=== PATIENT | male | born 1935 | race Caucasian/White ===

== ENCOUNTER 2016-08-05 17:55 | Inpatient (IN) | payer MEDICARE, BC, OTHER ==
[~2016-08-05] VITALS: Ht 193 cm; Wt 91.1 kg
[2016-08-05 19:05] VITALS: BP 113/60; PULSE 78; RESP 24; TEMP 97; O2SAT 88; O2SAT 93
--- NOTE | 2016-08-05 19:11 | PD ---
HPI Chief Complaint: Psychiatric Symptoms Time Seen by Provider: 19:07 Travel History International Travel<30 days: No Contact w/Intl Traveler<30days: No Traveled to known affect area: No History of Present Illness HPI 81-year-old male that presents to the ED for evaluation of Mariaelena harper. Patient was Ferrell acted by police after apparently he made statements that he didn't want live anymore. Apparently patient was found at home not eating and not taking care of himself. From report from ambulance and ED nurse patient apparently was found with his who was for possibly 24 hours. Unclear as to the reason of the but apparently patient has been not taking care of himself since and is basically very depressed and during my examination he cries and is hard to get his attention. 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 Patient does not use oxygen at home. Patient is unclear as to why he hasn't eaten other than being depressed and not wanting to live anymore. Patient apparently with . Police was called who Ferrell acted the patient for his own safety. He denies any history of schizophrenia. He does tell me that he takes lots of medications but he doesn't know the name of all done. He does take blood thinners. He denies any abdominal pain. Nausea or vomiting. He does state having some shortness of breath and some chest pressure. Has no allergies to medication. Denies any drugs or alcohol. Denies any homicidal ideation. PFSH Past Medical History Hx Anticoagulant Therapy: Yes Cardiovascular Problems: Yes High Cholesterol: Yes Chest Pain: Yes Past Surgical History Cardiac Surgery: Yes (CABG) Social History Alcohol Use: No Tobacco Use: No Substance Use: No Allergies-Medications (Allergen,Severity, Reaction): Coded Allergies: No Known Allergies (Unverified , 08/05/16) Review of Systems Except as stated in HPI: all other systems reviewed are Neg Physical Exam Narrative GENERAL: SKIN: Warm and dry. HEAD: Atraumatic. Normocephalic. EYES: Pupils equal and round. No scleral icterus. No injection or drainage. ENT: No nasal bleeding or discharge. Mucous membranes pink and moist. Tongue is midline. No uvula deviation. NECK: Trachea midline. No JVD. CARDIOVASCULAR: Regular rate and rhythm. No murmurs, S3, S4. RESPIRATORY: No accessory muscle use. Wheezing heard in all lung swanson. Breath sounds equal bilaterally. GASTROINTESTINAL: Abdomen soft, non-tender, nondistended. Hepatic and splenic margins not palpable. MUSCULOSKELETAL: Extremities without clubbing, cyanosis, or edema. No obvious deformities. Full range of motion of the upper and lower extremities bilaterally. 2+ pulses bilaterally. NEUROLOGICAL: Awake and alert. No obvious cranial nerve deficits. Motor grossly within normal limits. Five out of 5 muscle strength in the arms and legs. Normal speech. PSYCHIATRIC: Very depressed mood and affect; insight and judgment questionable at this time. Data Data Last Documented VS Vital Signs Date Time Temp Pulse Resp B/P Pulse Ox O2 Delivery O2 Flow Rate FiO2 08/05/16 19:38 95 Nasal Cannula 2 08/05/16 19:05 97.0 78 24 113/60 Orders Complete Blood Count With Diff (08/05/16 18:59) Comprehensive Metabolic Panel (08/05/16 18:59) Urinalysis - C+S If Indicated (08/05/16 18:59) Drug Screen, Random Urine (08/05/16 18:59) Alcohol (Ethanol) (08/05/16 18:59) Psych Screen (08/05/16 18:59) Electrocardiogram (08/05/16 19:05) Ckmb (Isoenzyme) Profile (08/05/16 19:05) Troponin I (08/05/16 19:05) Prothrombin Time / Inr (Pt) (08/05/16 19:05) Act Partial Throm Time (Ptt) (08/05/16 19:05) Chest, Single Ap (08/05/16 19:05) Iv Access Insert/Monitor (08/05/16 19:05) Ecg Monitoring (08/05/16 19:05) Oximetry (08/05/16 19:05) Albuterol Neb (Albuterol Neb) (08/05/16 19:15) B-Type Natriuretic Peptide (08/05/16 19:36) CKMB (08/05/16 19:12) CKMB% (08/05/16 19:12) Labs Laboratory Tests Test 08/05/16 19:12 White Blood Count 3.3 TH/MM3 Red Blood Count 4.17 MIL/MM3 Hemoglobin 14.0 GM/DL Hematocrit 39.5 % Mean Corpuscular Volume 94.7 FL Mean Corpuscular Hemoglobin 33.7 PG Mean Corpuscular Hemoglobin 35.6 % Concent Red Cell Distribution Width 13.0 % Platelet Count 150 TH/MM3 Mean Platelet Volume 9.8 FL Neutrophils (%) (Auto) 62.6 % Lymphocytes (%) (Auto) 23.0 % Monocytes (%) (Auto) 12.9 % Eosinophils (%) (Auto) 0.9 % Basophils (%) (Auto) 0.6 % Neutrophils # (Auto) 2.1 TH/MM3 Lymphocytes # (Auto) 0.8 TH/MM3 Monocytes # (Auto) 0.4 TH/MM3 Eosinophils # (Auto) 0.0 TH/MM3 Basophils # (Auto) 0.0 TH/MM3 CBC Comment DIFF FINAL Differential Comment Prothrombin Time 12.0 SEC Prothromb Time International 1.1 RATIO Ratio Activated Partial 36.8 SEC Thromboplast Time Sodium Level 132 MEQ/L Potassium Level 3.4 MEQ/L Chloride Level 93 MEQ/L Carbon Dioxide Level 31.5 MEQ/L Anion Gap 8 MEQ/L Blood Urea Nitrogen 19 MG/DL Creatinine 0.93 MG/DL Estimat Glomerular Filtration 78 ML/MIN Rate Random Glucose 122 MG/DL Calcium Level 8.2 MG/DL Total Bilirubin 0.6 MG/DL Aspartate Amino Transf 53 U/L (AST/SGOT) Alanine Aminotransferase 34 U/L (ALT/SGPT) Alkaline Phosphatase 107 U/L Total Creatine Kinase 351 U/L Creatine Kinase MB 4.9 NG/ML Creatine Kinase MB % 1.4 % Troponin I 0.06 NG/ML Total Protein 7.9 GM/DL Albumin 3.1 GM/DL Ethyl Alcohol Level LESS THAN 3 MG/DL MDM Medical Decision Making Medical Screen Exam Complete: Yes Emergency Medical Condition: Yes Medical Record Reviewed: Yes Interpretation(s) CBC & BMP Diagram 08/05/16 19:12 Last Impressions Chest X-Ray 08/05/16 190 Signed Impressions: Service Date/Time: July 19:05 - CONCLUSION: Bilateral basilar interstitial disease, some 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 John Almaraz MD Troponin elevated at 0.06 CK elevated in the 300s EKG shows sinus rhythm with no sign of acute ischemia or arrhythmia read by me and attending. Differential Diagnosis COPD versus inability take for self versus chest pain versus a typical chest pain versus ACS versus COPD exacerbation versus depression versus suicidal ideation Narrative Course 81-year-old male that presents to the ED for evaluation of Ferrell act. Patient was properly examined and was found to have signs and symptoms which appear to be consistent with COPD exacerbation and depression. Patient just lost his who apparently was found that his house. Patient is not taking care of himself because of the depression secondary to the loss of the . Patient does appear to be short of breath. All. Patient has been taking his medications. Patient states that he is not eating or taking care of himself. He states that he wants to . Because of this labs and imaging will be ordered. Patient was started on oxygen and given breathing treatments here. Chest x-ray and cardiac workup was done as patient complains of some chest pressure about his appears to be more related to COPD exacerbation cannot rule out ACS. Labs and imaging showed what appears to be mild CHF failure with elevated troponin. Case was discussed in my attending who agrees admission. Patient was admitted to Dr. García. Patient was given Lasix and breathing treatments here in the ED. Patient satting better with oxygen. Patient still Ferrell act. Consult to psychiatry was placed. Procedures EKG Prior to Arrival: No Diagnosis Primary Impression: Acute exacerbation of CHF (congestive heart failure) Qualified Code: I50.9 - Acute on chronic congestive heart failure, unspecified congestive heart failure type Additional Impressions: Elevated troponin Shortness of breath Admitting Information Admitting Physician Requests: Observation Luther Kohler Aug 05, 2016 19:11
[2016-08-05] MEDS ORDERED: RESP: ALBUTEROL 2.5 MG/3 ML NEB (SCH) INH ONE (19:15)
[2016-08-05 19:21] VITALS: O2SAT 93
--- NOTE | 2016-08-05 19:29 | RADRPT ---
EXAM DATE/TIME: 08/05/2016 19:05 [facility] COMPARISON: No previous studies available for comparison. INDICATIONS : Short of breath MEDICAL HISTORY : Hypertension. SURGICAL HISTORY : CABG. ENCOUNTER: Initial ACUITY: 1 day PAIN SCORE: 0/10 LOCATION: Bilateral chest FINDINGS: Mild to moderate mid and lower lung predominant bilateral interstitial opacities are present with mil d cardiomegaly. No pleural effusion seen. No pneumothorax. Patient has had previous median sternotomy. 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 John Almaraz MD on August 05, 2016 at 19:27 Board Certified Radiologist. This report was verified electronically.
[2016-08-05 19:31] LABS: AUTOMATED NEUTROPHIL # 2.1 TH/MM3 (1.8-7.7); BASOPHIL % 0.6 % (0.0-2.0); EOSINOPHIL % 0.9 % (0.0-4.0); HEMATOCRIT 39.5 % (39.0-51.0); HEMO FLAGS DIFF FINAL; LYMPHOCYTE # 0.8 TH/MM3 (1.0-4.8); MEAN CELL VOLUME 94.7 FL (80.0-100.0); MEAN CORPUSCULAR HEMOGLOBIN 33.7 PG (27.0-34.0); MEAN CORPUSCULAR HGB CONC 35.6 % (32.0-36.0); MONO % 12.9 % (0.0-8.0); NEUT % 62.6 % (16.0-70.0); PLATELET COUNT 150 TH/MM3 (150-450); RED BLOOD COUNT 4.17 MIL/MM3 (4.50-5.90); WHITE BLOOD COUNT 3.3 TH/MM3 (4.0-11.0)
[2016-08-05 19:38] VITALS: O2SAT 95
[2016-08-05 19:40] LABS: APTT (PATIENT) 36.8 SEC (24.3-30.1); INTERNATIONAL NORMALIZED RATIO 1.1 RATIO
[2016-08-05 19:49] LABS: ANION GAP 8 MEQ/L (5-15)
[2016-08-05 19:53] LABS: ALKALINE PHOSPHATASE 107 U/L (45-117); ALT (GPT) 34 U/L (12-78); AST (GOT) 53 U/L (15-37); BICARBONATE 31.5 MEQ/L (21.0-32.0); BLOOD UREA NITROGEN 19 MG/DL (7-18); CHLORIDE 93 MEQ/L (98-107); GLOMERULAR FILTRATION RATE 78 ML/MIN (>89); POTASSIUM 3.4 MEQ/L (3.5-5.1); SODIUM (NA) 132 MEQ/L (136-145); TOTAL BILIRUBIN ADULT 0.6 MG/DL (0.2-1.0)
[2016-08-05 20:06] LABS: CKMB 4.9 NG/ML (0.5-3.6)
[2016-08-05] MEDS ORDERED: FUROSEMIDE 40 MG/4 ML VIAL IV PUSH ONE (20:30)
[2016-08-05 20:43] VITALS: BP 107/58; PULSE 67; RESP 22; O2SAT 89
[2016-08-05] MEDS ORDERED: methylPREDNISolone SOD SUCC 125 MG/2 ML VIAL IVP ONE (21:00)
[2016-08-05] MEDS: RESP: ALBUTEROL 2.5 MG/3 ML NEB (SCH) INH (21:04)
[2016-08-05] MEDS ORDERED: SODIUM CHLOR 0.9% 1000 ML INJ 1,000 ML IV SCH (21:11)
[2016-08-05] MEDS ORDERED: ACETAMINOPHEN 325 MG TAB PO PRN (21:15)
[2016-08-05] MEDS ORDERED: ONDANSETRON HCL 4 MG/2 ML VIAL IVP PRN (21:15)
[2016-08-05] MEDS ORDERED: SODIUM CHLORIDE 0.9% FLUSH 5 ML FLUSH FLUSH PRN (21:15)
[2016-08-05] MEDS ORDERED: NALOXONE HCL 0.4 MG/ML AMP IV PRN (21:15)
[2016-08-05 21:43] LABS: MEAN CORPUSCULAR HGB CONC 37.4 % (32.0-36.0)
[2016-08-05] MEDS ORDERED: ENALAPRILAT 2.5 MG/2 ML VIAL IV PUSH PRN (21:45)
[2016-08-05] MEDS ORDERED: hydrALAZINE HCL 20 MG/ML VIAL IV PUSH PRN (21:45)
[2016-08-05] MEDS ORDERED: cloNIDine HCL 0.1 MG TAB PO PRN (21:45)
[2016-08-05 22:02] LABS: BLOOD, URINE NEG (NEG); COMMENT (UR) CULT NOT INDICATED; CULTURE IF INDICATED CULT NOT INDICATED; GLUCOSE,URINE NEG (NEG); KETONE, URINE NEG (NEG); NITRITE,URINE NEG (NEG); SQUAMOUS EPITHELIAL CELL URINE <1 /hpf (0-5); URINE COLOR DARK-YELLOW (YELLW/STRAW)
[2016-08-05 22:13] LABS: AMPHETAMINE, URINE NEG (NEG); BARBITURATES, URINE NEG (NEG); COCAINE, URINE NEG (NEG)
[2016-08-05] MEDS: D5-NS + KCL 20 MEQ INJ 1,000 ML IV SCH (22:29)
[2016-08-05] MEDS: LORazepam 0.5 MG TAB PO PRN (22:30)
[2016-08-05] MEDS: ENOXAPARIN SODIUM 40 MG/0.4 ML SYRINGE SQ SCH (22:30)
[2016-08-05] MEDS: PANTOPRAZOLE SODIUM 40 MG VIAL IV PUSH SCH (22:30)
[2016-08-05] MEDS: LEVOFLOXACIN 750 MG PREMIX INJ 150 ML IV SCH (22:31)
[2016-08-05] MEDS: DOCUSATE SODIUM 100 MG CAP PO SCH ×2 (22:31→22:40)
[2016-08-05 22:40] VITALS: BP 112/58; PULSE 67; RESP 20; O2SAT 93
[2016-08-06] VITALS (9 sets, daily range): BP systolic 112–140; BP diastolic 55–64; PULSE 64–78; RESP 16–20; TEMP 97.1–97.8; O2SAT 90–96
[2016-08-06] MEDS: NITROGLYCERIN 2% OINT 1 GM PACKET TOPICAL SCH ×5 (02:08→23:22)
[2016-08-06 05:17] LABS: POTASSIUM 3.7 MEQ/L (3.5-5.1)
[2016-08-06 05:20] LABS: HEMATOCRIT 33.6 % (39.0-51.0); MEAN CELL VOLUME 96.3 FL (80.0-100.0); PLATELET COUNT 122 TH/MM3 (150-450); RED BLOOD COUNT 3.49 MIL/MM3 (4.50-5.90); RED CELL DISTRIBUTION WIDTH 12.7 % (11.6-17.2); WHITE BLOOD COUNT 1.8 TH/MM3 (4.0-11.0)
[2016-08-06 05:27] LABS: HEMO FLAGS AUTO DIFF
[2016-08-06] MEDS: RESP: ALBUTEROL 2.5 MG/IPRATROPIUM 0.5 MG NEB (SCH) NEB ×4 (07:21→19:48)
[2016-08-06 07:32] LABS: NEUTROPHIL # MANUAL DIFF 1.5 TH/MM3 (1.8-7.7); PLATELET ESTIMATE SMEAR LOW (NORMAL); PLATELET MORPHOLOGY NORMAL (NORMAL); POLYS (SEG NEUTROPHILS) 81 % (16-70); SCAN/DIFF FINAL DIFF MANUAL; WBC DIFF SAMPLE 100
--- NOTE | 2016-08-06 08:14 | HHI.HP ---
History of Present Illness Primary Care Physician Noe García MD Admission Diagnosis CHF exacerbation, chest pain r/o ACS Diagnoses: (1) Shortness of breath (2) Elevated troponin (3) Acute exacerbation of CHF (congestive heart failure) History of Present Illness 81 Y CM. ADMIT FOR [facility] ACT AND PNA. PT AND HIS HAVE BEEN AT HOME WITH COLD SYMPTOMS FOR APPROXIMATELY THE PAST FOUR DAYS. PT FOUND HIS IN BED FOR WHAT SEEMED TO BE AN EXTENDED PERIOD OF TIME. PT REPORTED HE DID NOT WANT TO BOTHER HIS WHEN SHE WAS ILL IN BED TO TRY TO LET HER RECOVER AND DID NOT WANT TO TAKE HER TO THE ER. HE CALLED MY OFFICE AT [facility] TO REPORT HER HAVING SUBJECTIVE FEVER YET DID NOT SCHEDULE AND APPT HE WAS GOING TO GO TO THE ER AT [facility] DUE TO HIMSELF HAVING RECTAL BLEEDING. I CHECKED THE ER AT [facility] TO SEE IF HE ARRIVED THERE AT THE TIME AND HE WAS A NO SHOW. I WAS CALLED BY THE OFFICER ON THE SCENE AND SPOKE WITH A CHILD CARE ATTENDANT WHOM WAS CONCERNED FOR HIS WELL BEING AND THAT HE APPEARED TO HAVE CHEST CONGESTION. PT CLIFFORD ACTED TO [facility] HE WAS NOT EATING AND THE CONCERN THAT HE WAS UNABLE TO CARE FOR HIMSELF. I WAS THUS CALLED FOR ADMISSION AND SPOKE WITH THE ER PA. PT FOUND WITH PNA, SEPSIS AND GRIEF REACTION. PT VOICES NO A/V/H, NO SI. NO GUNS IN THE HOME. Sepsis Criteria SIRS Criteria (2 or more): Heart rate over 90, RR > 20 or PaCO2 < 32 Sepsis Criteria (SIRS+source): Infect source susp/known Severe Sepsis (+one): Organ Dysfunction, Hypotension, Acute Oliguria/Renal Failure Multiple Organ Dysfunction Syn: Evidence -2 organs failing Criteria Outcome: Meets severe sepsis criteria Review of Systems ROS Limitations: Clinical Condition, Altered Mental Status, Poor Historian Other NEGATIVE FOURTEEN POINT ROS EXCEPT ABOVE Past Family Social History Allergies: Coded Allergies: No Known Allergies (Unverified , 08/05/16) Past Medical History CAD HTN Past Surgical History CABG Active Ordered Medications Current Medications Medications (Trade) Dose Ordered Sig/Wilberto Route Start Time Stop Time Status Last Admin (NS Flush) 2 ml UNSCH PRN FLUSH 08/05/16 21:15 (NS Flush) 2 ml BID FLUSH 08/06/16 09:00 (Tylenol) 650 mg Q4H PRN PO 08/05/16 21:15 (Zofran Inj) 4 mg Q6H PRN IVP 08/05/16 21:15 (Colace) 100 mg Q12HR PO 08/05/16 21:45 (Ambien) 5 mg HS PRN PO 08/05/16 21:45 (Lovenox Inj) 40 mg Q24H SQ 08/05/16 22:00 08/05/16 22:30 Naloxone HCl 0.4 mg 0.4 mg UNSCH PRN IV 08/05/16 21:15 (D5-NS + KCl 20 Meq Inj) 1,000 ml @ 20 mls/hr Q24H IV 08/05/16 21:45 08/05/16 22:29 (Apresoline Inj) 20 mg Q4H PRN IV PUSH 08/05/16 21:45 (Ativan) 0.5 mg Q8H PRN PO 08/05/16 21:45 08/05/16 22:30 (Catapres) 0.1 mg Q6H PRN PO 08/05/16 21:45 Enalaprilat 2.5 mg 2.5 mg Q6H PRN IV PUSH 08/05/16 21:45 (Levaquin 750 Mg Premix Inj) 150 ml @ 100 mls/hr Q24H IV 08/05/16 22:00 08/05/16 22:31 (Maddock 5-325 Mg) 1 tab Q4H PRN PO 08/05/16 21:45 (Nitroglycerin 2% Oint) 1 inch Q6HR TOPICAL 08/06/16 00:00 08/06/16 06:00 (Protonix Inj) 40 mg Q24H IV PUSH 08/05/16 21:45 08/05/16 22:30 Family History NC Social History NO E/T/D Physical Exam Vital Signs Vital Signs Date Time Temp Pulse Resp B/P Pulse Ox O2 Delivery O2 Flow Rate FiO2 08/06/16 07:21 94 Nasal Cannula 3.00 08/06/16 04:30 97.2 64 18 112/55 95 08/06/16 00:23 Nasal Cannula 2.00 08/06/16 00:23 97.1 64 18 118/60 96 08/05/16 22:40 67 20 112/58 93 Nasal Cannula 4 08/05/16 20:43 67 22 107/58 89 Nasal Cannula 4 08/05/16 20:34 69 24 08/05/16 19:38 95 Nasal Cannula 2 08/05/16 19:21 93 Nasal Cannula 2.00 08/05/16 19:05 93 Nasal Cannula 2 08/05/16 19:05 97.0 78 24 113/60 88 Room Air Physical Exam GENERAL: This is a well-nourished, well-developed patient, in no apparent distress. SKIN: No rashes, ecchymoses or lesions. Cool and dry. HEAD: Atraumatic. Normocephalic. No temporal or scalp tenderness. EYES: Pupils equal round and reactive. Extraocular motions intact. No scleral icterus. No injection or drainage. ENT: Nose without bleeding, purulent drainage or septal hematoma. Throat without erythema, tonsillar hypertrophy or exudate. Uvula midline. Airway patent. NECK: Trachea midline. No JVD or lymphadenopathy. Supple, nontender, no meningeal signs. CARDIOVASCULAR: Regular rate and rhythm without murmurs, gallops, or rubs. RESPIRATORY: B RONCHI TO APICES, L BASE CRACKLES, HARSH COUGH GASTROINTESTINAL: Abdomen soft, non-tender, nondistended. No hepato-splenomegaly , or palpable masses. No guarding. MUSCULOSKELETAL: Extremities without clubbing, cyanosis, or edema. No joint tenderness, effusion, or edema noted. No calf tenderness. Negative Homans sign bilaterally. NEUROLOGICAL: Awake and alert. Cranial nerves II through XII intact. Motor and sensory grossly within normal limits. Five out of 5 muscle strength in all muscle groups. Normal speech. Laboratory Laboratory Tests Test 08/05/16 08/05/16 08/05/16 08/06/16 19:12 19:54 21:42 04:26 White Blood Count 3.3 1.8 Red Blood Count 4.17 3.49 Hemoglobin 14.0 12.6 Hematocrit 39.5 33.6 Mean Corpuscular Volume 94.7 96.3 Mean Corpuscular Hemoglobin 33.7 36.0 Mean Corpuscular Hemoglobin 35.6 37.4 Concent Red Cell Distribution Width 13.0 12.7 Platelet Count 150 122 Mean Platelet Volume 9.8 9.7 Neutrophils (%) (Auto) 62.6 Lymphocytes (%) (Auto) 23.0 Monocytes (%) (Auto) 12.9 Eosinophils (%) (Auto) 0.9 Basophils (%) (Auto) 0.6 Neutrophils # (Auto) 2.1 Lymphocytes # (Auto) 0.8 Monocytes # (Auto) 0.4 Eosinophils # (Auto) 0.0 Basophils # (Auto) 0.0 CBC Comment DIFF FINAL AUTO DIFF Differential Comment FINAL DIFF MANUAL Prothrombin Time 12.0 Prothromb Time International 1.1 Ratio Activated Partial 36.8 Thromboplast Time Sodium Level 132 132 Potassium Level 3.4 3.7 Chloride Level 93 94 Carbon Dioxide Level 31.5 31.0 Anion Gap 8 7 Blood Urea Nitrogen 19 21 Creatinine 0.93 0.89 Estimat Glomerular Filtration 78 82 Rate Random Glucose 122 220 Calcium Level 8.2 7.9 Total Bilirubin 0.6 Aspartate Amino Transf 53 (AST/SGOT) Alanine Aminotransferase 34 (ALT/SGPT) Alkaline Phosphatase 107 Total Creatine Kinase 351 Creatine Kinase MB 4.9 Creatine Kinase MB % 1.4 Troponin I 0.06 Total Protein 7.9 Albumin 3.1 Ethyl Alcohol Level LESS THAN 3 B-Type Natriuretic Peptide 75 Urine Color DARK-YELLOW Urine Turbidity CLEAR Urine pH 6.0 Urine Specific Many 1.017 Urine Protein TRACE Urine Glucose (UA) NEG Urine Ketones NEG Urine Occult Blood NEG Urine Nitrite NEG Urine Bilirubin NEG Urine Urobilinogen LESS THAN 2.0 Urine Leukocyte Esterase NEG Urine RBC 1 Urine WBC 2 Urine Squamous Epithelial <1 Cells Microscopic Urinalysis Comment CULT NOT INDICATED Urine Opiates Screen POS Urine Barbiturates Screen NEG Urine Amphetamines Screen NEG Urine Benzodiazepines Screen NEG Urine Cocaine Screen NEG Urine Cannabinoids Screen NEG Differential Total Cells 100 Counted Neutrophils % (Manual) 81 Lymphocytes % 12 Monocytes % 7 Neutrophils # (Manual) 1.5 Platelet Estimate LOW Platelet Morphology Comment NORMAL Test 08/06/16 06:45 Troponin I 0.04 Result Diagram: 08/06/1642508/06/16425 Assessment and Plan Assessment and Plan GRIEF REACTION AMS SEVERE SEPSIS NSTEMI PNA COPD HYPERGLYCEMIA REMOTE GIB PANCYTOPENIA CAD CABG HTN CHRONIC SINUSITIS NASAL ABSCESSES HYPOTHYROIDISM PLAN: IVF ENZYMES IV STEROIDS IV PROTONIX GUIAC STOOL PSYCHIATRY CONSULT FOR [facility] ACT CARDIOLOGY CONSULT SEE MY ORDERS FOR MED AND LAB CHANGES PLEASE. INPT ADMIT FOR THE ABOVE DX AND PLAN. EXPECT 5 D INPT STAY UNLESS PT NEEDS TO GO TO PSYCH UNIT. PT WOULD AT HOME W/O INPT ADMIT. PT REQ DC HOME. Problem Qualifiers (1) Acute exacerbation of CHF (congestive heart failure): Qualified Code: I50.9 - Acute on chronic congestive heart failure, unspecified congestive heart failure type Noe García MD Aug 06, 2016 08:14
[2016-08-06] MEDS: SODIUM CHLORIDE 0.9% FLUSH 5 ML FLUSH FLUSH SCH ×2 (09:00→20:44)
[2016-08-06] MEDS: SERTRALINE HCL 100 MG TAB PO SCH (09:24)
[2016-08-06] MEDS: methylPREDNISolone SOD SUCC 125 MG/2 ML VIAL IV PUSH SCH ×3 (09:25→20:45)
--- NOTE | 2016-08-06 11:13 | PD.CONS ---
Provisional Diagnosis Admission Date Aug 05, 2016 at 20:31 Jbphh I. Adjustment disorder with depressed mood versus Mourning Jbphh II. Deferred Jbphh III. CHF, hypertension, hyponatremia Jbphh IV. Recent of Jbphh V. 55 History of Present Illness Service Psychiatry Consult Requested By Primary Care Physician Noe García MD HPI The patient is a 81-year-old retired man, , domiciled alone in [place], without any previous psychiatric history, no previous suicidal attempts, no psychotropics, no previous hospitalizations, medical history of COPD, CHF, CABG, who presents to the ED for evaluation of Ferrell act. Patient was Ferrell acted by police after apparently he made statements that he didn't want live anymore. As per previous Er note "Apparently patient was found at home not eating and not taking care of himself. From report from ambulance and ED nurse patient apparently was found with his who was for possibly 24 hours. Unclear as to the reason of the but apparently patient has been not taking care of himself since and is basically very depressed and during my examination he cries and is hard to get his attention". Patient was seen today at bedside in the medical floor, patient was found talking with sitter, he was calm, cooperative, very pleasant, he explains that his about 2 days ago, he has been extremely sad since then "how not to be sad when your 31 year best friend dies". "However, I am in peace because she is in peace ". He says that when he was found by the police he was extremely sad and he might say that he wanted to , but he doesn't remember. Today he explains that he has a low life to live, he has to go to [place] to the positive the ashes of his as he was her last whish. But more than that, he states that he has many books to read and too much poetry to write before he dies. He describes himself as a very spiritual person, with a lot of friends and a very supportive family and is not part of his Philosophy to commit suicide. Patient reports sadness secondary to the of his , but he denies hopelessness, helplessness, anhedonia, poor appetite, generalized pessimism, lack of jose in the future, suicidal or homicidal ideation. He states that his family, especially his 3 kids, most probably are Landing today in [place] in order to help and be with him. Patient is fully oriented 3, no fluctuation of consciousness, no attention deficit, paranoia, delusions, gross cognitive impairment are observed during this evaluation. Patient reports almost daily use of alcohol, 1 cup of wine, he denies history of withdrawal or alcoholism, he denies the use of illicit drugs. Review of Systems Constitutional: DENIES: Diaphoretic episodes, Fatigue, Fever, Weight gain, Weight loss, Chills, Dizziness, Change in appetite, Night Sweats Endocrine: DENIES: Heat/cold intolerance, Polydipsia, Polyuria, Polyphagia Eyes: DENIES: Blurred vision, Diplopia, Eye inflammation, Eye pain, Vision loss , Photosensitivity, Double Vision Ears, nose, mouth, throat: DENIES: Tinnitus, Hearing loss, Vertigo, Nasal discharge, Oral lesions, Throat pain, Hoarseness, Ear Pain, Running Nose, Epistaxis, Sinus Pain, Toothache, Odynophagia Respiratory: DENIES: Apneas, Cough, Snoring, Wheezing, Hemoptysis, Sputum production, Shortness of breath Cardiovascular: DENIES: Chest pain, Palpitations, Syncope, Dyspnea on Exertion , PND, Lower Extremity Edema, Orthopnea, Claudication Gastrointestinal: DENIES: Abdominal pain, Black stools, Bloody stools, Constipation, Diarrhea, Nausea, Vomiting, Difficulty Swallowing, Anorexia Genitourinary: DENIES: Sexual dysfunction, Urinary frequency, Urinary incontinence, Urgency, Hematuria, Dysuria, Nocturia, Penile Discharge, Testicular Pain, Testicular Swelling Musculoskeletal: DENIES: Joint pain, Muscle aches, Stiffness, Joint Swelling, Back pain, Neck pain Integumentary: DENIES: Abnormal pigmentation, Nail changes, Pruritus, Rash Hematologic/lymphatic: COMPLAINS OF: Bruising (some bruises observed in his arms), DENIES: Lymphadenopathy Immunologic/allergic: DENIES: Eczema, Urticaria Neurologic: DENIES: Abnormal gait, Headache, Localized weakness, Paresthesias, Seizures, Speech Problems, Tremor, Poor Balance Psychiatric: COMPLAINS OF: Depression, DENIES: Anxiety, Confusion, Mood changes, Hallucinations, Agitation, Suicidal Ideation, Homicidal Ideation, Delusions Past Family Social History Coded Allergies: No Known Allergies (Unverified , 08/05/16) Current Medications Medications (Trade) Dose Ordered Sig/Wilberto Route Start Time Stop Time Status Last Admin (NS Flush) 2 ml UNSCH PRN FLUSH 08/05/16 21:15 (NS Flush) 2 ml BID FLUSH 08/06/16 09:00 08/06/16 09:00 (Tylenol) 650 mg Q4H PRN PO 08/05/16 21:15 (Zofran Inj) 4 mg Q6H PRN IVP 08/05/16 21:15 (Colace) 100 mg Q12HR PO 08/05/16 21:45 (Ambien) 5 mg HS PRN PO 08/05/16 21:45 (Lovenox Inj) 40 mg Q24H SQ 08/05/16 22:00 08/05/16 22:30 Naloxone HCl 0.4 mg 0.4 mg UNSCH PRN IV 08/05/16 21:15 (D5-NS + KCl 20 Meq Inj) 1,000 ml @ 20 mls/hr Q24H IV 08/05/16 21:45 08/05/16 22:29 (Apresoline Inj) 20 mg Q4H PRN IV PUSH 08/05/16 21:45 (Ativan) 0.5 mg Q8H PRN PO 08/05/16 21:45 08/05/16 22:30 (Catapres) 0.1 mg Q6H PRN PO 08/05/16 21:45 Enalaprilat 2.5 mg 2.5 mg Q6H PRN IV PUSH 08/05/16 21:45 (Levaquin 750 Mg Premix Inj) 150 ml @ 100 mls/hr Q24H IV 08/05/16 22:00 08/05/16 22:31 (Lyman 5-325 Mg) 1 tab Q4H PRN PO 08/05/16 21:45 (Nitroglycerin 2% Oint) 1 inch Q6HR TOPICAL 08/06/16 00:00 08/06/16 06:00 (Protonix Inj) 40 mg Q24H IV PUSH 08/05/16 21:45 08/05/16 22:30 (SoluMEDROL INJ) 80 mg Q6H IV PUSH 08/06/16 09:00 08/06/16 09:25 (Synthroid) 50 mcg DAILY@0600 PO 08/07/16 06:00 (Zoloft) 100 mg DAILY PO 08/06/16 10:00 08/06/16 09:24 Family History He denies Social History Patient was born and raised in [place], he has been living in [place] for 13 years, he has 3 adult kids, he has been 2 times, his yesterday , he lives in [place], his highest level of education is college, he enjoyed reading books and writing poetry. Physical Exam Vital Signs Vital Signs Date Time Temp Pulse Resp B/P Pulse Ox O2 Delivery O2 Flow Rate FiO2 08/06/16 07:21 94 Nasal Cannula 3.00 08/06/16 04:30 97.2 64 18 112/55 Mental Status Examination Appearance Elderly man, age appearing, good hygiene, hospital [facility], calm, cooperative, and pleasant Speech: Unremarkable Orientation: x3 Memory: Unremarkable Thought Process: Logical Hallucination Type: None Attention and Concentration: Good Suicidal Ideation: No Previous Suicide Attempts: No Homicidal Ideation: No Previous Homicide Attempts: No Judgement: WNL Affect: Euthymic Mood: Sad Motor Activity: Normal gait Assessment & Plan Problem List: (1) Mourning Assessment & Plan: On psychiatric evaluation today patient reports sadness related with recent of his , but denies depressive symptoms such as anhedonia, hopelessness, helplessness, worthlessness, low self-esteem, low energy, poor appetite, insomnia, he denies suicidal and homicidal ideation. Patient denies past and current marco, anxiety, psychotic symptoms. Patient denies visual and auditory hallucinations. Patient is fully oriented 3, no delirium, confusion, gross cognitive impairment observed at this moment. This patient does not have any previous psychiatric history, no previous hospitalization, no previous suicidal attempt. He is highly possible that describes sadness and suicidal statements made to the police and for which the patient was Ferrell acted was secondary to the stress and adjustment produced by the of his . Now, based on this evaluation patient seems to be coping for a well with this sad event in his life, and he seems to have good family support and good coping skills to deal with conflictive and negative emotions. No psychiatric intervention is needed, he does not meet criteria for psychiatric admission. Extensive support and motivation was provided to the patient. No psychotropics are indicated as at this moment. Continue medical care as needed. Ferrell act will be lifted. Consult appreciated. ICD Code: F43.20 Assessment & Plan Estimated LOS: days Jamie Atkinson MD Aug 06, 2016 11:13
--- NOTE | 2016-08-06 13:26 | MB ---
cc: SIXTO HEAD DO DATE OF CONSULTATION 08/06/2016 REASON FOR CONSULTATION Elevated troponin HISTORY OF PRESENT ILLNESS Jose Roth is a pleasant 81-year-old male who was originally a Ferrell acted brought to the emergency room at [facility] on August 05, 2016 due to inability to take care of himself. He and his have had cold symptoms for the past four days. The patient found his in the bed. When police officers and paramedics arrived, the patient stated that no longer wanted to live and he had not been taking care of himself recently and so he was brought in as a Ferrell Act. On arrival here, he was found to possibly have pneumonia versus congestive heart failure. In speaking to him, he states that he had been recently short of breath. He does state that he has some chest pain occasionally but this has been going on for 16 years. The pain comes on briefly across his chest and goes away. Since the start of having episodes of pain, he has had three stress tests. The original two were negative for ischemia. The third one showed an abnormality per the patient and he was taken to the [facility]. In the [facility], he was found to have disease but they were unable to intervene on it and he was deemed medical management. He has noticed that he has had a significant cough over the past few days as well as his did. During the cough is when he seems to get his chest pain. PAST MEDICAL HISTORY 1. Coronary artery disease 2. Hypertension PAST SURGICAL HISTORY Coronary artery bypass grafting (unknown number of breath, unknown date, unknown anatomy ALLERGIES NO KNOWN DRUG ALLERGIES. MEDICATIONS The patient is unsure of his previous medications, notes that he is on a blood thinner of some kind and a blood pressure medication. FAMILY HISTORY Denies premature coronary artery disease or sudden cardiac within the family. SOCIAL HISTORY Denies alcohol, tobacco or drug abuse. REVIEW OF SYSTEMS A 14 systems were reviewed including osteopathic pertinent positives and negatives above, otherwise negative. PHYSICAL EXAMINATION VITAL SIGNS: Temperature 97.2, heart rate 64, blood pressure 112/55, respirations 80, pulse ox 94% on three liters. GENERAL: The patient appears in no acute distress, alert, awake and oriented. HEAD, EYES, EARS, NOSE, AND THROAT: Extraocular muscles intact. Mucous membranes moist. NECK: Supple. No JVD at 45 degrees. No carotid bruits heard bilaterally. Carotid upstroke is brisk in nature. HEART: Regular rate and rhythm. Positive first and second heart sounds with no noted murmurs, gallops or rubs. LUNGS: The lungs have decreased breath sounds at bilateral bases with rhonchi scattered throughout and wheezing noted. ABDOMEN: The abdomen is soft, nontender and nondistended. No organomegaly noted. EXTREMITIES: Show no clubbing, cyanosis or edema. Femoral and distal pulses intact bilaterally. NEUROLOGIC: No focal deficits. SKIN: Warm, dry and intact. OSTEOPATHICALLY: No kyphoscoliosis, lordosis or paraspinal tender points. PSYCHOLOGICALLY: The patient appears in an appropriate grieving state, does not appear to have homicidal or suicidal ideation. LABORATORY WORK White blood cells 1.8, hemoglobin 12.6, hematocrit 33.6, platelets 122. Sodium 132, potassium 3.7, BUN 21, creatinine 0.89, troponin 0.06 decreasing to 0.04. BNP 75. Electrocardiogram (August 05, 2016 at 1824) normal sinus rhythm at 65 beats per minute, nonspecific ST-T wave changes. Possible old inferior infarct. IMPRESSION 1. Shortness of breath. 2. Presumed acute exacerbation of CHF, although it appears that the patient more likely has either a COPD exacerbation versus bronchitis versus pneumonia. 3. Previous inability to take care oF himself due to major grieving since recently losing his . 4. Pancytopenia with extensive neutropenia 5. Mildly elevated troponin most likely type 2 NSTEMI 6. Hyponatremia of unknown cause. 7. History of coronary artery disease with a history of coronary artery bypass grafting, previous abnormal stress test for which he underwent cardiac catheterization and was deemed of medical management. RECOMMENDATIONS 1. Mr. Roth' elevated troponin is most likely secondary to his underlying illness which appears to be either COPD exacerbation, pneumonia or bronchitis. 2. My concern is that he has extensive neutropenia. 3. We will continue medical management for his previous coronary artery disease and minimally elevated troponin. 4. We will check a 2-D echo to look at his overall left ventricular function, cardiac structure and valvopathies. 5. Further recommendations will be made based on the hospital course. Thank you for allowing me to see Jose Roth. If there are any questions, please do not hesitate to call. Sixto GONGORA/DJL /12:30 PM /1:08 PM
[2016-08-06] MEDS: LORazepam 0.5 MG TAB PO PRN (15:25)
[2016-08-06] MEDS: ATORVASTATIN 40 MG TAB PO SCH (20:45)
[2016-08-06] MEDS: D5-NS + KCL 20 MEQ INJ 1,000 ML IV SCH (20:46)
[2016-08-06] MEDS: PANTOPRAZOLE SODIUM 40 MG VIAL IV PUSH SCH (20:52)
[2016-08-06] MEDS: DOCUSATE SODIUM 100 MG CAP PO SCH (20:52)
[2016-08-06] MEDS: ZOLPIDEM TARTRATE 5 MG TAB PO PRN (20:52)
[2016-08-06] MEDS: ENOXAPARIN SODIUM 40 MG/0.4 ML SYRINGE SQ SCH (20:57)
[2016-08-06] MEDS: LEVOFLOXACIN 750 MG PREMIX INJ 150 ML IV SCH (20:58)
--- NOTE | 2016-08-06 22:49 | EKG ---
Date Performed: 08/05/2016 Time Performed: 18:24:57 PTAGE: 81 years EKG: Sinus rhythm NONSPECIFIC T-WAVE ABNORMALITY BORDERLINE ECG NO PREVIOUS TRACING DOCTOR: Aspen Kulkarni Interpretating Date/Time 08/06/2016 22:45:34
[2016-08-07] VITALS (9 sets, daily range): BP systolic 108–147; BP diastolic 58–70; PULSE 73–84; RESP 12–20; TEMP 97.3–98.6; O2SAT 90–94
[2016-08-07] MEDS: methylPREDNISolone SOD SUCC 125 MG/2 ML VIAL IV PUSH SCH (05:20)
[2016-08-07] MEDS: NITROGLYCERIN 2% OINT 1 GM PACKET TOPICAL SCH (05:20)
[2016-08-07] MEDS: LEVOTHYROXINE SODIUM 50 MCG TAB PO SCH (05:21)
[2016-08-07 07:47] LABS: BICARBONATE 28.1 MEQ/L (21.0-32.0); POTASSIUM 3.6 MEQ/L (3.5-5.1)
[2016-08-07 08:24] LABS: AUTOMATED NEUTROPHIL # 11.1 TH/MM3 (1.8-7.7); BASOPHIL # 0.1 TH/MM3 (0-0.2); BASOPHIL % 0.6 % (0.0-2.0); HEMATOCRIT 35.4 % (39.0-51.0); LYMPH % 6.1 % (9.0-44.0); LYMPHOCYTE # 0.8 TH/MM3 (1.0-4.8); MEAN CELL VOLUME 88.8 FL (80.0-100.0); MEAN CORPUSCULAR HEMOGLOBIN 30.1 PG (27.0-34.0); MEAN CORPUSCULAR HGB CONC 33.9 % (32.0-36.0); MONO % 6.8 % (0.0-8.0); NEUT % 86.5 % (16.0-70.0); PLATELET COUNT 157 TH/MM3 (150-450); RED BLOOD COUNT 3.98 MIL/MM3 (4.50-5.90); WHITE BLOOD COUNT 12.8 TH/MM3 (4.0-11.0)
[2016-08-07 08:25] LABS: HEMO FLAGS AUTO DIFF
--- NOTE | 2016-08-07 08:48 | HHI.FPPN ---
Subjective Remarks c/o weakness C/O COUGH C/O SOB D/W RN Objective Vitals Vital Signs Date Time Temp Pulse Resp B/P Pulse Ox O2 Delivery O2 Flow Rate FiO2 08/07/16 04:00 97.4 81 17 147/70 94 08/07/16 00:00 97.4 84 16 145/70 93 08/06/16 20:00 97.6 75 16 140/64 94 08/06/16 20:00 75 08/06/16 19:48 94 Nasal Cannula 3.00 08/06/16 19:45 Nasal Cannula 1.00 08/06/16 16:00 97.8 78 20 134/62 90 08/06/16 12:00 97.2 72 20 132/63 92 08/06/16 12:00 97.2 72 20 132/63 92 08/06/16 09:00 68 I/O 08/06/16 08/06/16 08/06/16 08/07/16 08/07/16 08/07/16 07:00 15:00 23:00 07:00 15:00 23:00 Intake Total 240 ml 450 ml 600 ml 240 ml Output Total 360 ml 250 ml 450 ml Balance -120 ml 200 ml 600 ml -210 ml Intake Oral 240 ml 450 ml 600 ml 240 ml Output Urine Total 360 ml 250 ml 450 ml # Voids 3 # Bowel Movements 0 1 Result Diagram: 08/07/1651408/07/1615 Objective Remarks GENERAL: SKIN: Warm and dry. HEAD: Atraumatic. Normocephalic. EYES: Pupils equal and round. No scleral icterus. No injection or drainage. ENT: No nasal bleeding or discharge. Mucous membranes pink and moist. NECK: Trachea midline. No JVD. CARDIOVASCULAR: Regular rate and rhythm. RESPIRATORY: R/R B. Breath sounds equal bilaterally. GASTROINTESTINAL: Abdomen soft, non-tender, nondistended. Hepatic and splenic margins not palpable. MUSCULOSKELETAL: Extremities without clubbing, cyanosis, or edema. No obvious deformities. NEUROLOGICAL: Awake and alert. No obvious cranial nerve deficits. Motor grossly within normal limits. Five out of 5 muscle strength in the arms and legs. Normal speech. PSYCHIATRIC: Appropriate mood and affect; insight and judgment normal. Medications and IVs Current Medications Medications (Trade) Dose Ordered Sig/Wilberto Route Start Time Stop Time Status Last Admin (NS Flush) 2 ml UNSCH PRN FLUSH 08/05/16 21:15 (NS Flush) 2 ml BID FLUSH 08/06/16 09:00 08/06/16 20:44 (Tylenol) 650 mg Q4H PRN PO 08/05/16 21:15 (Zofran Inj) 4 mg Q6H PRN IVP 08/05/16 21:15 (Colace) 100 mg Q12HR PO 08/05/16 21:45 (Ambien) 5 mg HS PRN PO 08/05/16 21:45 08/06/16 20:52 (Lovenox Inj) 40 mg Q24H SQ 08/05/16 22:00 08/06/16 20:57 Naloxone HCl 0.4 mg 0.4 mg UNSCH PRN IV 08/05/16 21:15 (D5-NS + KCl 20 Meq Inj) 1,000 ml @ 20 mls/hr Q24H IV 08/05/16 21:45 08/06/16 20:46 (Apresoline Inj) 20 mg Q4H PRN IV PUSH 08/05/16 21:45 (Ativan) 0.5 mg Q8H PRN PO 08/05/16 21:45 08/06/16 15:25 (Catapres) 0.1 mg Q6H PRN PO 08/05/16 21:45 Enalaprilat 2.5 mg 2.5 mg Q6H PRN IV PUSH 08/05/16 21:45 (Levaquin 750 Mg Premix Inj) 150 ml @ 100 mls/hr Q24H IV 08/05/16 22:00 08/06/16 20:58 ([place] 5-325 Mg) 1 tab Q4H PRN PO 08/05/16 21:45 (Nitroglycerin 2% Oint) 1 inch Q6HR TOPICAL 08/06/16 00:00 08/07/16 05:20 (Protonix Inj) 40 mg Q24H IV PUSH 08/05/16 21:45 08/06/16 20:52 (SoluMEDROL INJ) 80 mg Q6H IV PUSH 08/06/16 09:00 08/07/16 05:20 (Synthroid) 50 mcg DAILY@0600 PO 08/07/16 06:00 08/07/16 05:21 (Zoloft) 100 mg DAILY PO 08/06/16 10:00 08/06/16 09:24 (Lipitor) 40 mg HS PO 08/06/16 21:00 08/06/16 20:45 (Aspirin Chew) 81 mg DAILY CHEW 08/07/16 09:00 A/P Assessment and Plan GRIEF REACTION AMS SEVERE SEPSIS NSTEMI. TROP NEG NOW. PNA COPD HYPERGLYCEMIA REMOTE GIB PANCYTOPENIA CAD CABG HTN CHRONIC SINUSITIS NASAL ABSCESSES HYPOTHYROIDISM HYPOGONADISM, ON TESTOST PATCH. UNDERSTANDS R/B CA AND INCR CAD. PLAN: IVF IV STEROIDS IV PROTONIX GUIAC STOOL PSYCHIATRY CONSULT FOR HORTON ACT CARDIOLOGY CONSULT TESTOSTERONE PATCH SEE MY ORDERS FOR MED AND LAB CHANGES PLEASE. Noe García MD Aug 07, 2016 08:48
[2016-08-07] MEDS: RESP: ALBUTEROL 2.5 MG/IPRATROPIUM 0.5 MG NEB (SCH) NEB ×4 (08:50→19:41)
[2016-08-07] MEDS: ASPIRIN 81 MG CHEW TAB CHEW SCH (09:00)
[2016-08-07] MEDS: DOCUSATE SODIUM 100 MG CAP PO SCH ×2 (09:00→20:38)
[2016-08-07] MEDS: SERTRALINE HCL 100 MG TAB PO SCH (09:00)
[2016-08-07 10:08] LABS: SCAN/DIFF AUTO DIFF CONFIRMED
[2016-08-07] MEDS: SODIUM CHLORIDE 0.9% FLUSH 5 ML FLUSH FLUSH SCH ×2 (12:58→20:42)
--- NOTE | 2016-08-07 13:15 | PD.CARD.PN ---
Subjective Subjective Remarks No chest pain, breathing better today Objective Medications Current Medications Medications (Trade) Dose Ordered Sig/Wilberto Route Start Time Stop Time Status Last Admin (NS Flush) 2 ml UNSCH PRN FLUSH 08/05/16 21:15 (NS Flush) 2 ml BID FLUSH 08/06/16 09:00 08/07/16 12:58 (Tylenol) 650 mg Q4H PRN PO 08/05/16 21:15 (Zofran Inj) 4 mg Q6H PRN IVP 08/05/16 21:15 (Colace) 100 mg Q12HR PO 08/05/16 21:45 08/07/16 09:00 (Ambien) 5 mg HS PRN PO 08/05/16 21:45 08/06/16 20:52 (Lovenox Inj) 40 mg Q24H SQ 08/05/16 22:00 08/06/16 20:57 Naloxone HCl 0.4 mg 0.4 mg UNSCH PRN IV 08/05/16 21:15 (D5-NS + KCl 20 Meq Inj) 1,000 ml @ 20 mls/hr Q24H IV 08/05/16 21:45 08/06/16 20:46 (Apresoline Inj) 20 mg Q4H PRN IV PUSH 08/05/16 21:45 (Ativan) 0.5 mg Q8H PRN PO 08/05/16 21:45 08/06/16 15:25 (Catapres) 0.1 mg Q6H PRN PO 08/05/16 21:45 Enalaprilat 2.5 mg 2.5 mg Q6H PRN IV PUSH 08/05/16 21:45 (Levaquin 750 Mg Premix Inj) 150 ml @ 100 mls/hr Q24H IV 08/05/16 22:00 08/06/16 20:58 (Hancock 5-325 Mg) 1 tab Q4H PRN PO 08/05/16 21:45 (Protonix Inj) 40 mg Q24H IV PUSH 08/05/16 21:45 08/06/16 20:52 (Synthroid) 50 mcg DAILY@0600 PO 08/07/16 06:00 08/07/16 05:21 (Zoloft) 100 mg DAILY PO 08/06/16 10:00 08/07/16 09:00 (Lipitor) 40 mg HS PO 08/06/16 21:00 08/06/16 20:45 (Aspirin Chew) 81 mg DAILY CHEW 08/07/16 09:00 08/07/16 09:00 (SoluMEDROL INJ) 40 mg Q6H IV 08/07/16 15:00 Vital Signs / I&O Vital Signs Date Time Temp Pulse Resp B/P Pulse Ox O2 Delivery O2 Flow Rate FiO2 08/07/16 12:00 97.8 74 20 108/58 91 08/07/16 08:53 91 Nasal Cannula 5.00 08/07/16 08:00 97.3 73 12 125/60 90 08/07/16 04:00 97.4 81 17 147/70 94 08/07/16 00:00 97.4 84 16 145/70 93 08/06/16 20:00 97.6 75 16 140/64 94 08/06/16 20:00 75 08/06/16 19:48 94 Nasal Cannula 3.00 08/06/16 19:45 Nasal Cannula 1.00 08/06/16 16:00 97.8 78 20 134/62 90 I/O 08/06/16 08/06/16 08/06/16 08/07/16 08/07/16 08/07/16 07:00 15:00 23:00 07:00 15:00 23:00 Intake Total 240 ml 450 ml 600 ml 240 ml Output Total 360 ml 250 ml 450 ml Balance -120 ml 200 ml 600 ml -210 ml Intake Oral 240 ml 450 ml 600 ml 240 ml Output Urine Total 360 ml 250 ml 450 ml # Voids 3 # Bowel Movements 0 1 Physical Exam GENERAL: NAD, AAOx3 SKIN: Warm and dry. HEAD: Atraumatic. Normocephalic. EYES: Pupils equal and round. No scleral icterus. No injection or drainage. ENT: No nasal bleeding or discharge. Mucous membranes pink and moist. NECK: Trachea midline. No JVD. CARDIOVASCULAR: Regular rate and rhythm. RESPIRATORY: No accessory muscle use. Mild rhonchi bilaterally GASTROINTESTINAL: Abdomen soft, non-tender, nondistended. Hepatic and splenic margins not palpable. MUSCULOSKELETAL: Extremities without clubbing, cyanosis, or edema. No obvious deformities. NEUROLOGICAL: Awake and alert. No obvious cranial nerve deficits. Motor grossly within normal limits. Five out of 5 muscle strength in the arms and legs. Normal speech. PSYCHIATRIC: Appropriate mood and affect; insight and judgment normal. Laboratory Laboratory Tests Test 08/07/16 05:15 White Blood Count 12.8 TH/MM3 Red Blood Count 3.98 MIL/MM3 Hemoglobin 12.0 GM/DL Hematocrit 35.4 % Mean Corpuscular Volume 88.8 FL Mean Corpuscular Hemoglobin 30.1 PG Mean Corpuscular Hemoglobin 33.9 % Concent Red Cell Distribution Width 13.0 % Platelet Count 157 TH/MM3 Mean Platelet Volume 10.2 FL Neutrophils (%) (Auto) 86.5 % Lymphocytes (%) (Auto) 6.1 % Monocytes (%) (Auto) 6.8 % Eosinophils (%) (Auto) 0.0 % Basophils (%) (Auto) 0.6 % Neutrophils # (Auto) 11.1 TH/MM3 Lymphocytes # (Auto) 0.8 TH/MM3 Monocytes # (Auto) 0.9 TH/MM3 Eosinophils # (Auto) 0.0 TH/MM3 Basophils # (Auto) 0.1 TH/MM3 CBC Comment AUTO DIFF Differential Comment AUTO DIFF CONFIRMED Sodium Level 134 MEQ/L Potassium Level 3.6 MEQ/L Chloride Level 97 MEQ/L Carbon Dioxide Level 28.1 MEQ/L Anion Gap 9 MEQ/L Blood Urea Nitrogen 33 MG/DL Creatinine 0.96 MG/DL Estimat Glomerular Filtration 75 ML/MIN Rate Random Glucose 159 MG/DL Calcium Level 8.0 MG/DL Assessment and Plan Problem List: (1) PNA (pneumonia) (2) Mourning (3) Acute exacerbation of CHF (congestive heart failure) (4) Elevated troponin (5) Shortness of breath Assessment and Plan 1) Minimal troponin spill, most likely secondary to acute illness 2) Previous cardiac catheterization he was told that they could not do anything , and to continue medical management 3) I offered repeat ischemic evaluation, but would hold off until through acute illness... most likely continue medical management, but will reassess after through acute illness 4) 2D echo pending Problem Qualifiers (1) Acute exacerbation of CHF (congestive heart failure): Qualified Code: I50.9 - Acute on chronic congestive heart failure, unspecified congestive heart failure type Sixto Pelletier DO Aug 07, 2016 13:15
--- NOTE | 2016-08-07 14:43 | EC ---
Study Study Date:08/06/2016 STUDY CONCLUSIONS SUMMARY LEFT VENTRICLE: The cavity size was normal. Wall thickness was increased in a pattern of mild LVH. Systolic function was normal. The estimated ejection fraction was in the range of 55% to 60%. Although no diagnostic regional wall motion abnormality was identified, this possibility cannot be completely excluded on the basis of this study. If LV function is below 40, please consider prescribing an ACEI or ARB or document rationale for non-use. PROCEDURE DATA STUDY STATUS: Elective. Procedure: Transthoracic echocardiography. Image quality was fair. Scanning was performed from the parasternal, apical, and subcostal acoustic windows. Study completion: The patient tolerated the procedure well. Transthoracic echocardiography. M-mode, complete 2D, complete spectral Doppler, and color Doppler. Patient status: Inpatient. CARDIAC ANATOMY LEFT VENTRICLE: The cavity size was normal. Wall thickness was increased in a pattern of mild LVH. Systolic function was normal. The estimated ejection fraction was in the range of 55% to 60%. Although no diagnostic regional wall motion abnormality was identified, this possibility cannot be completely excluded on the basis of this study. AORTIC VALVE: The valve appears to be grossly normal. Doppler: There was no stenosis. No significant regurgitation. MITRAL VALVE: The valve appears to be grossly normal. Doppler: There was no evidence for stenosis. Trace regurgitation. PULMONIC VALVE: Not visualized. TRICUSPID VALVE: The valve appears to be grossly normal. Doppler: There was no evidence for stenosis. Trace regurgitation. PERICARDIUM: There was no pericardial effusion. BASIC MEASUREMENTS ADULT NORMAL Left ventricle LV internal dimension, ED, chordal level, 51.9 mm 43-52 PLAX LV internal dimension, ES, chordal level, *40 mm 23-38 PLAX Fractional shortening, chordal level, PLAX *23 % >29 LV posterior wall thickness, ED 13.2 mm IVS/LVPW ratio, ED 0.98 <1.3 Ventricular septum Septal thickness, ED 13 mm Aortic valve Leaflet separation 20 mm 15-26 Right ventricle RV internal dimension, ED, PLAX 23.3 mm 19-38 BASIC MEASUREMENTS ADULT NORMAL Aortic valve Leaflet separation 20 mm 15-26 Aorta Root diameter, ED *43 mm 20-37 Left atrium Anterior-posterior dimension, ES *44 mm 19-40 LA/aortic root ratio 1.02 LEGEND: Mean values are shown as u=mean value. Asterisk (*) kim values outside specified normal range. Prepared and signed by Sixto Pelletier [id number]
[2016-08-07] MEDS: methylPREDNISolone SOD SUCC 40 MG/1 ML VIAL IV SCH ×2 (16:02→20:38)
[2016-08-07] MEDS: ATORVASTATIN 40 MG TAB PO SCH (20:38)
[2016-08-07] MEDS: ZOLPIDEM TARTRATE 5 MG TAB PO PRN (20:39)
[2016-08-07] MEDS: LEVOFLOXACIN 750 MG PREMIX INJ 150 ML IV SCH (20:40)
[2016-08-07] MEDS: PANTOPRAZOLE SODIUM 40 MG VIAL IV PUSH SCH (20:40)
[2016-08-07] MEDS: ENOXAPARIN SODIUM 40 MG/0.4 ML SYRINGE SQ SCH (20:40)
[2016-08-07] MEDS: D5-NS + KCL 20 MEQ INJ 1,000 ML IV SCH (20:41)
[2016-08-08] VITALS (9 sets, daily range): BP systolic 105–114; BP diastolic 56–67; PULSE 69–90; RESP 16–20; TEMP 97.2–98; O2SAT 89–94
[2016-08-08] MEDS: methylPREDNISolone SOD SUCC 40 MG/1 ML VIAL IV SCH ×4 (03:20→21:01)
[2016-08-08] MEDS: LEVOTHYROXINE SODIUM 50 MCG TAB PO SCH (05:08)
[2016-08-08] MEDS: RESP: ALBUTEROL 2.5 MG/IPRATROPIUM 0.5 MG NEB (SCH) NEB ×4 (09:26→19:32)
[2016-08-08 09:54] LABS: AUTOMATED NEUTROPHIL # 7.1 TH/MM3 (1.8-7.7); BASOPHIL % 0.1 % (0.0-2.0); HEMATOCRIT 33.1 % (39.0-51.0); HEMO FLAGS DIFF FINAL; LYMPH % 4.8 % (9.0-44.0); LYMPHOCYTE # 0.4 TH/MM3 (1.0-4.8); MEAN CELL VOLUME 95.4 FL (80.0-100.0); MEAN CORPUSCULAR HEMOGLOBIN 34.1 PG (27.0-34.0); MEAN CORPUSCULAR HGB CONC 35.7 % (32.0-36.0); MONO % 9.3 % (0.0-8.0); NEUT % 85.8 % (16.0-70.0); PLATELET COUNT 184 TH/MM3 (150-450); RED BLOOD COUNT 3.47 MIL/MM3 (4.50-5.90); RED CELL DISTRIBUTION WIDTH 12.6 % (11.6-17.2); WHITE BLOOD COUNT 8.3 TH/MM3 (4.0-11.0)
[2016-08-08] MEDS: DOCUSATE SODIUM 100 MG CAP PO SCH ×2 (10:01→21:01)
[2016-08-08] MEDS: ASPIRIN 81 MG CHEW TAB CHEW SCH (10:01)
[2016-08-08] MEDS: SERTRALINE HCL 100 MG TAB PO SCH (10:01)
[2016-08-08] MEDS: SODIUM CHLORIDE 0.9% FLUSH 5 ML FLUSH FLUSH SCH ×2 (10:02→21:04)
[2016-08-08 10:08] LABS: BICARBONATE 31.6 MEQ/L (21.0-32.0)
--- NOTE | 2016-08-08 10:30 | HHI.FPPN ---
Subjective Remarks 02 86 when walking c/o nasal gtt c/o congestion Objective Vitals Vital Signs Date Time Temp Pulse Resp B/P Pulse Ox O2 Delivery O2 Flow Rate FiO2 08/08/16 09:29 92 Nasal Cannula 5.00 08/08/16 08:00 97.6 73 16 110/56 89 08/08/16 04:00 97.2 72 20 114/57 93 08/08/16 00:00 97.6 78 18 109/56 94 08/07/16 20:00 80 08/07/16 20:00 98.6 83 20 134/60 94 08/07/16 19:42 92 Nasal Cannula 3.00 08/07/16 19:30 Nasal Cannula 1.00 08/07/16 16:42 93 Nasal Cannula 3.00 08/07/16 16:00 97.7 84 16 118/59 91 08/07/16 12:00 97.8 74 20 108/58 91 I/O 08/07/16 08/07/16 08/07/16 08/08/16 08/08/16 08/08/16 07:00 15:00 23:00 07:00 15:00 23:00 Intake Total 240 ml 240 ml 630 ml 400 ml Output Total 450 ml 100 ml 300 ml Balance -210 ml 240 ml 530 ml 100 ml Intake Oral 240 ml 240 ml 480 ml 240 ml IV Total 150 ml 160 ml Output Urine Total 450 ml 100 ml 300 ml # Voids 1 1 # Bowel Movements 1 Result Diagram: 08/08/16 0856 08/08/16 0856 Objective Remarks GENERAL: SKIN: Warm and dry. HEAD: Atraumatic. Normocephalic. EYES: Pupils equal and round. No scleral icterus. No injection or drainage. ENT: No nasal bleeding or discharge. Mucous membranes pink and moist. NECK: Trachea midline. No JVD. CARDIOVASCULAR: Regular rate and rhythm. RESPIRATORY: R/R B. Breath sounds equal bilaterally. GASTROINTESTINAL: Abdomen soft, non-tender, nondistended. Hepatic and splenic margins not palpable. MUSCULOSKELETAL: Extremities without clubbing, cyanosis, or edema. No obvious deformities. NEUROLOGICAL: Awake and alert. No obvious cranial nerve deficits. Motor grossly within normal limits. Five out of 5 muscle strength in the arms and legs. Normal speech. PSYCHIATRIC: Appropriate mood and affect; insight and judgment normal. Medications and IVs Current Medications Medications (Trade) Dose Ordered Sig/Wilberto Route Start Time Stop Time Status Last Admin (NS Flush) 2 ml UNSCH PRN FLUSH 08/05/16 21:15 (NS Flush) 2 ml BID FLUSH 08/06/16 09:00 08/08/16 10:02 (Tylenol) 650 mg Q4H PRN PO 08/05/16 21:15 (Zofran Inj) 4 mg Q6H PRN IVP 08/05/16 21:15 (Colace) 100 mg Q12HR PO 08/05/16 21:45 08/08/16 10:01 (Ambien) 5 mg HS PRN PO 08/05/16 21:45 08/07/16 20:39 (Lovenox Inj) 40 mg Q24H SQ 08/05/16 22:00 08/07/16 20:40 Naloxone HCl 0.4 mg 0.4 mg UNSCH PRN IV 08/05/16 21:15 (D5-NS + KCl 20 Meq Inj) 1,000 ml @ 20 mls/hr Q24H IV 08/05/16 21:45 08/07/16 20:41 (Apresoline Inj) 20 mg Q4H PRN IV PUSH 08/05/16 21:45 (Ativan) 0.5 mg Q8H PRN PO 08/05/16 21:45 08/06/16 15:25 (Catapres) 0.1 mg Q6H PRN PO 08/05/16 21:45 Enalaprilat 2.5 mg 2.5 mg Q6H PRN IV PUSH 08/05/16 21:45 (Levaquin 750 Mg Premix Inj) 150 ml @ 100 mls/hr Q24H IV 08/05/16 22:00 08/07/16 20:40 ([place] 5-325 Mg) 1 tab Q4H PRN PO 08/05/16 21:45 (Protonix Inj) 40 mg Q24H IV PUSH 08/05/16 21:45 08/07/16 20:40 (Synthroid) 50 mcg DAILY@0600 PO 08/07/16 06:00 08/08/16 05:08 (Zoloft) 100 mg DAILY PO 08/06/16 10:00 08/08/16 10:01 (Lipitor) 40 mg HS PO 08/06/16 21:00 08/07/16 20:38 (Aspirin Chew) 81 mg DAILY CHEW 08/07/16 09:00 08/08/16 10:01 (SoluMEDROL INJ) 40 mg Q6H IV 08/07/16 15:00 08/08/16 10:01 A/P Assessment and Plan GRIEF REACTION AMS SEVERE SEPSIS NSTEMI. TROP NEG NOW. PNA COPD HYPERGLYCEMIA REMOTE GIB PANCYTOPENIA CAD CABG HTN CHRONIC SINUSITIS NASAL ABSCESSES HYPOTHYROIDISM HYPOGONADISM, ON TESTOST PATCH. UNDERSTANDS R/B CA AND INCR CAD. PLAN: IVF IV STEROIDS IV PROTONIX GUIAC STOOL PSYCHIATRY CONSULT FOR [place] ACT CARDIOLOGY CONSULT. MAY NEED ISCHEMIC WORKUP AFTER PNA CLEARS. TESTOSTERONE PATCH START FLUTICASONE, WANTS ADVAIR SEE MY ORDERS FOR MED AND LAB CHANGES PLEASE. Noe García MD Aug 08, 2016 10:30
[2016-08-08] MEDS: FLUTICASONE PROPIONATE 220 MCG/ACT 12 GM INHALER INH SCH ×2 (15:33→21:09)
--- NOTE | 2016-08-08 16:05 | PD.CARD.PN ---
Subjective Subjective Remarks No chest pain, shortness of breath with walking Objective Medications Current Medications Medications (Trade) Dose Ordered Sig/Wilberto Route Start Time Stop Time Status Last Admin (Tylenol) 650 mg Q4H PRN PO 08/05/16 21:15 (Zofran Inj) 4 mg Q6H PRN IVP 08/05/16 21:15 (Colace) 100 mg Q12HR PO 08/05/16 21:45 08/08/16 10:01 (Ambien) 5 mg HS PRN PO 08/05/16 21:45 08/07/16 20:39 (Lovenox Inj) 40 mg Q24H SQ 08/05/16 22:00 08/07/16 20:40 Naloxone HCl 0.4 mg 0.4 mg UNSCH PRN IV 08/05/16 21:15 (D5-NS + KCl 20 Meq Inj) 1,000 ml @ 20 mls/hr Q24H IV 08/05/16 21:45 08/07/16 20:41 (Apresoline Inj) 20 mg Q4H PRN IV PUSH 08/05/16 21:45 (Ativan) 0.5 mg Q8H PRN PO 08/05/16 21:45 08/06/16 15:25 (Catapres) 0.1 mg Q6H PRN PO 08/05/16 21:45 Enalaprilat 2.5 mg 2.5 mg Q6H PRN IV PUSH 08/05/16 21:45 (Levaquin 750 Mg Premix Inj) 150 ml @ 100 mls/hr Q24H IV 08/05/16 22:00 08/07/16 20:40 ([place] 5-325 Mg) 1 tab Q4H PRN PO 08/05/16 21:45 (Protonix Inj) 40 mg Q24H IV PUSH 08/05/16 21:45 08/07/16 20:40 (Synthroid) 50 mcg DAILY@0600 PO 08/07/16 06:00 08/08/16 05:08 (Zoloft) 100 mg DAILY PO 08/06/16 10:00 08/08/16 10:01 (Lipitor) 40 mg HS PO 08/06/16 21:00 08/07/16 20:38 (Aspirin Chew) 81 mg DAILY CHEW 08/07/16 09:00 08/08/16 10:01 (SoluMEDROL INJ) 40 mg Q6H IV 08/07/16 15:00 08/08/16 15:34 (Flovent Hfa 220 Mcg Inh) 1 puff BID INH 08/08/16 11:00 08/08/16 15:33 Vital Signs / I&O Vital Signs Date Time Temp Pulse Resp B/P Pulse Ox O2 Delivery O2 Flow Rate FiO2 08/08/16 12:00 97.8 90 16 106/56 90 08/08/16 09:29 92 Nasal Cannula 5.00 08/08/16 08:00 96 Nasal Cannula 3.00 08/08/16 08:00 97.6 73 16 110/56 89 08/08/16 04:00 97.2 72 20 114/57 93 08/08/16 00:00 97.6 78 18 109/56 94 08/07/16 20:00 80 08/07/16 20:00 98.6 83 20 134/60 94 08/07/16 19:42 92 Nasal Cannula 3.00 08/07/16 19:30 Nasal Cannula 1.00 08/07/16 16:42 93 Nasal Cannula 3.00 I/O 08/07/16 08/07/16 08/07/16 08/08/16 08/08/16 08/08/16 07:00 15:00 23:00 07:00 15:00 23:00 Intake Total 240 ml 240 ml 630 ml 400 ml Output Total 450 ml 100 ml 300 ml Balance -210 ml 240 ml 530 ml 100 ml Intake Oral 240 ml 240 ml 480 ml 240 ml IV Total 150 ml 160 ml Output Urine Total 450 ml 100 ml 300 ml # Voids 1 1 # Bowel Movements 1 Physical Exam GENERAL: NAD, AAOx3 SKIN: Warm and dry. HEAD: Atraumatic. Normocephalic. EYES: Pupils equal and round. No scleral icterus. No injection or drainage. ENT: No nasal bleeding or discharge. Mucous membranes pink and moist. NECK: Trachea midline. No JVD. CARDIOVASCULAR: Regular rate and rhythm. RESPIRATORY: No accessory muscle use. Mild rhonchi bilaterally GASTROINTESTINAL: Abdomen soft, non-tender, nondistended. Hepatic and splenic margins not palpable. MUSCULOSKELETAL: Extremities without clubbing, cyanosis, or edema. No obvious deformities. NEUROLOGICAL: Awake and alert. No obvious cranial nerve deficits. Motor grossly within normal limits. Five out of 5 muscle strength in the arms and legs. Normal speech. PSYCHIATRIC: Appropriate mood and affect; insight and judgment normal. Laboratory Laboratory Tests Test 08/08/16 08:56 White Blood Count 8.3 TH/MM3 Red Blood Count 3.47 MIL/MM3 Hemoglobin 11.8 GM/DL Hematocrit 33.1 % Mean Corpuscular Volume 95.4 FL Mean Corpuscular Hemoglobin 34.1 PG Mean Corpuscular Hemoglobin 35.7 % Concent Red Cell Distribution Width 12.6 % Platelet Count 184 TH/MM3 Mean Platelet Volume 10.0 FL Neutrophils (%) (Auto) 85.8 % Lymphocytes (%) (Auto) 4.8 % Monocytes (%) (Auto) 9.3 % Eosinophils (%) (Auto) 0.0 % Basophils (%) (Auto) 0.1 % Neutrophils # (Auto) 7.1 TH/MM3 Lymphocytes # (Auto) 0.4 TH/MM3 Monocytes # (Auto) 0.8 TH/MM3 Eosinophils # (Auto) 0.0 TH/MM3 Basophils # (Auto) 0.0 TH/MM3 CBC Comment DIFF FINAL Differential Comment Sodium Level 135 MEQ/L Potassium Level 4.0 MEQ/L Chloride Level 97 MEQ/L Carbon Dioxide Level 31.6 MEQ/L Anion Gap 6 MEQ/L Blood Urea Nitrogen 24 MG/DL Creatinine 0.86 MG/DL Estimat Glomerular Filtration 86 ML/MIN Rate Random Glucose 156 MG/DL Calcium Level 7.9 MG/DL Assessment and Plan Problem List: (1) PNA (pneumonia) (2) Mourning (3) Acute exacerbation of CHF (congestive heart failure) (4) Elevated troponin (5) Shortness of breath Assessment and Plan 1) Minimal troponin spill, most likely secondary to acute illness 2) Previous cardiac catheterization he was told that they could not do anything , and to continue medical management 3) I offered repeat ischemic evaluation, but would hold off until through acute illness... most likely continue medical management, will follow up outpatient with me for consideration of further ischemic work up 4) EF 55-60%, LVH 5) Spoke to the patient's son who is in agreement with the plan from a cardiovascular standpoint 6) Lasix IV today Problem Qualifiers (1) Acute exacerbation of CHF (congestive heart failure): Qualified Code: I50.9 - Acute on chronic congestive heart failure, unspecified congestive heart failure type Sixto Pelletier DO Aug 08, 2016 16:05
[2016-08-08] MEDS ORDERED: FUROSEMIDE 40 MG/4 ML VIAL IV PUSH ONE (16:15)
[2016-08-08] MEDS: ZOLPIDEM TARTRATE 5 MG TAB PO PRN (20:58)
[2016-08-08] MEDS: ENOXAPARIN SODIUM 40 MG/0.4 ML SYRINGE SQ SCH (20:59)
[2016-08-08] MEDS: ATORVASTATIN 40 MG TAB PO SCH (21:01)
[2016-08-08] MEDS: PANTOPRAZOLE SODIUM 40 MG VIAL IV PUSH SCH (21:02)
[2016-08-08] MEDS: LEVOFLOXACIN 750 MG PREMIX INJ 150 ML IV SCH (21:06)
[2016-08-08] MEDS: D5-NS + KCL 20 MEQ INJ 1,000 ML IV SCH (21:08)
[2016-08-09] VITALS (8 sets, daily range): BP systolic 105–134; BP diastolic 53–61; PULSE 63–93; RESP 16–18; TEMP 97.1–97.5; O2SAT 89–95
[2016-08-09] MEDS: methylPREDNISolone SOD SUCC 40 MG/1 ML VIAL IV SCH ×4 (03:21→20:54)
[2016-08-09] MEDS: LEVOTHYROXINE SODIUM 50 MCG TAB PO SCH (05:39)
[2016-08-09] MEDS: RESP: ALBUTEROL 2.5 MG/IPRATROPIUM 0.5 MG NEB (SCH) NEB ×4 (07:59→21:33)
[2016-08-09 08:09] LABS: AUTOMATED NEUTROPHIL # 6.4 TH/MM3 (1.8-7.7); BASOPHIL % 0.1 % (0.0-2.0); HEMATOCRIT 33.3 % (39.0-51.0); HEMO FLAGS DIFF FINAL; LYMPHOCYTE # 0.4 TH/MM3 (1.0-4.8); MEAN CELL VOLUME 95.8 FL (80.0-100.0); MEAN CORPUSCULAR HEMOGLOBIN 34.2 PG (27.0-34.0); MEAN CORPUSCULAR HGB CONC 35.6 % (32.0-36.0); MONO % 10.3 % (0.0-8.0); NEUT % 84.6 % (16.0-70.0); PLATELET COUNT 215 TH/MM3 (150-450); RED BLOOD COUNT 3.48 MIL/MM3 (4.50-5.90); RED CELL DISTRIBUTION WIDTH 12.8 % (11.6-17.2); WHITE BLOOD COUNT 7.6 TH/MM3 (4.0-11.0)
[2016-08-09] MEDS: SODIUM CHLORIDE 0.9% FLUSH 5 ML FLUSH FLUSH SCH ×2 (08:48→20:56)
[2016-08-09] MEDS: DOCUSATE SODIUM 100 MG CAP PO SCH ×2 (08:49→20:55)
[2016-08-09] MEDS: ASPIRIN 81 MG CHEW TAB CHEW SCH (08:49)
[2016-08-09] MEDS: FLUTICASONE PROPIONATE 220 MCG/ACT 12 GM INHALER INH SCH ×2 (08:49→20:55)
[2016-08-09] MEDS: SERTRALINE HCL 100 MG TAB PO SCH (08:49)
[2016-08-09 08:59] LABS: BICARBONATE 31.8 MEQ/L (21.0-32.0); POTASSIUM 4.2 MEQ/L (3.5-5.1)
--- NOTE | 2016-08-09 11:42 | HHI.FPPN ---
Subjective Remarks C/O SOB C/O COUGH D/W RN D/W SON HYPOXIC Objective Vitals Vital Signs Date Time Temp Pulse Resp B/P Pulse Ox O2 Delivery O2 Flow Rate FiO2 08/09/16 08:00 97.4 67 16 123/56 94 08/09/16 08:00 94 Nasal Cannula 4.00 08/09/16 04:00 97.5 71 18 134/61 92 08/09/16 00:00 97.4 72 16 109/60 93 08/08/16 20:00 97.3 81 16 105/56 92 08/08/16 20:00 Nasal Cannula 3.00 08/08/16 19:59 84 08/08/16 19:33 93 Nasal Cannula 5.00 08/08/16 16:00 98.0 69 16 111/67 92 08/08/16 12:00 97.8 90 16 106/56 90 I/O 08/08/16 08/08/16 08/08/16 08/09/16 08/09/16 08/09/16 07:00 15:00 23:00 07:00 15:00 23:00 Intake Total 400 ml 360 ml 360 ml 240 ml Output Total 300 ml 475 ml 200 ml Balance 100 ml 360 ml -115 ml 40 ml Intake Oral 240 ml 360 ml 360 ml 240 ml IV Total 160 ml Output Urine Total 300 ml 475 ml 200 ml # Voids 1 2 # Bowel Movements 1 0 0 Result Diagram: 08/09/16 0644 08/09/16 0644 Objective Remarks GENERAL: SKIN: Warm and dry. HEAD: Atraumatic. Normocephalic. EYES: Pupils equal and round. No scleral icterus. No injection or drainage. ENT: No nasal bleeding or discharge. Mucous membranes pink and moist. NECK: Trachea midline. No JVD. CARDIOVASCULAR: Regular rate and rhythm. RESPIRATORY: R/R B. Breath sounds equal bilaterally. GASTROINTESTINAL: Abdomen soft, non-tender, nondistended. Hepatic and splenic margins not palpable. MUSCULOSKELETAL: Extremities without clubbing, cyanosis, or edema. No obvious deformities. NEUROLOGICAL: Awake and alert. No obvious cranial nerve deficits. Motor grossly within normal limits. Five out of 5 muscle strength in the arms and legs. Normal speech. PSYCHIATRIC: Appropriate mood and affect; insight and judgment normal. Medications and IVs Current Medications Medications (Trade) Dose Ordered Sig/Wilberto Route Start Time Stop Time Status Last Admin (NS Flush) 2 ml UNSCH PRN FLUSH 08/05/16 21:15 (NS Flush) 2 ml BID FLUSH 08/06/16 09:00 08/09/16 08:48 (Tylenol) 650 mg Q4H PRN PO 08/05/16 21:15 (Zofran Inj) 4 mg Q6H PRN IVP 08/05/16 21:15 (Colace) 100 mg Q12HR PO 08/05/16 21:45 08/09/16 08:49 (Ambien) 5 mg HS PRN PO 08/05/16 21:45 08/08/16 20:58 (Lovenox Inj) 40 mg Q24H SQ 08/05/16 22:00 08/08/16 20:59 Naloxone HCl 0.4 mg 0.4 mg UNSCH PRN IV 08/05/16 21:15 (D5-NS + KCl 20 Meq Inj) 1,000 ml @ 20 mls/hr Q24H IV 08/05/16 21:45 08/08/16 21:08 (Apresoline Inj) 20 mg Q4H PRN IV PUSH 08/05/16 21:45 (Ativan) 0.5 mg Q8H PRN PO 08/05/16 21:45 08/06/16 15:25 (Catapres) 0.1 mg Q6H PRN PO 08/05/16 21:45 Enalaprilat 2.5 mg 2.5 mg Q6H PRN IV PUSH 08/05/16 21:45 (Levaquin 750 Mg Premix Inj) 150 ml @ 100 mls/hr Q24H IV 08/05/16 22:00 08/08/16 21:06 ([place] 5-325 Mg) 1 tab Q4H PRN PO 08/05/16 21:45 (Protonix Inj) 40 mg Q24H IV PUSH 08/05/16 21:45 08/08/16 21:02 (Synthroid) 50 mcg DAILY@0600 PO 08/07/16 06:00 08/09/16 05:39 (Zoloft) 100 mg DAILY PO 08/06/16 10:00 08/09/16 08:49 (Lipitor) 40 mg HS PO 08/06/16 21:00 08/08/16 21:01 (Aspirin Chew) 81 mg DAILY CHEW 08/07/16 09:00 08/09/16 08:49 (SoluMEDROL INJ) 40 mg Q6H IV 08/07/16 15:00 08/09/16 08:49 (Flovent Hfa 220 Mcg Inh) 1 puff BID INH 08/08/16 11:00 08/09/16 08:49 A/P Assessment and Plan GRIEF REACTION AMS SEVERE SEPSIS NSTEMI. TROP NEG NOW. PNA COPD HYPERGLYCEMIA REMOTE GIB PANCYTOPENIA CAD CABG HTN CHRONIC SINUSITIS NASAL ABSCESSES HYPOTHYROIDISM HYPOGONADISM, ON TESTOST PATCH. UNDERSTANDS R/B CA AND INCR CAD. PLAN: CTA CHEST PULM CONSULT IVF IV STEROIDS IV PROTONIX GUIAC STOOL PSYCHIATRY CONSULT FOR [place] ACT CARDIOLOGY CONSULT. MAY NEED ISCHEMIC WORKUP AFTER PNA CLEARS. TESTOSTERONE PATCH START FLUTICASONE, WANTS ADVAIR SEE MY ORDERS FOR MED AND LAB CHANGES PLEASE. Noe García MD Aug 09, 2016 11:42
[2016-08-09] MEDS: SODIUM CHLOR 0.9% 1000 ML INJ 1,000 ML IV SCH ×2 (13:20→23:40)
[2016-08-09] MEDS ORDERED: IOHEXOL 350 MG/ML 10 ML VIAL (for RAD DIAG) IV ONE (14:22)
--- NOTE | 2016-08-09 14:34 | RADRPT ---
EXAM DATE/TIME: 08/09/2016 14:17 [place] COMPARISON: CHEST SINGLE AP, August 05, 2016, 19:05. INDICATIONS : Hypoxia. IV CONTRAST: 55 cc Omnipaque 350 (iohexol) IV RADIATION DOSE: 13.7 CTDIvol (mGy) MEDICAL HISTORY : Cardiovascular disease. Chronic obstructive pulmonary disease. Hypertension. SURGICAL HISTORY : CABG ENCOUNTER: Initial ACUITY: 1 day PAIN SCALE: 2/10 LOCATION: chest TECHNIQUE: Volumetric scanning of the chest was performed using a pulmonary embolism protocol MIP images were re constructed. Using automated exposure control and adjustment of the mA and/or kV according to patien t size, radiation dose was kept as low as reasonably achievable to obtain optimal diagnostic quality images. FINDINGS: PULMONARY ARTERIES: No filling defects are seen in the pulmonary arteries through the segmental level. LUNGS: There is interstitial lung disease reticular in the bases with a lacy appearance primarily involving the lower lobes and in the right lung base posteriorly there is a rounded area of consolidation 1.7 c m in size the possibility of malignancy not excludable. PLEURAE: There is no pleural thickening or pleural effusion. MEDIASTINUM: There is good visualization of the great vessels of the middle mediastinum. No evidence of mediastin al or hilar adenopathy/mass. MUSCULOSKELETAL: Within normal limits for patient age. MISCELLANEOUS: The visualized upper abdominal organs demonstrate no acute abnormality. CONCLUSION: Negative for pulmonary embolization. Bilateral lower lobe interstitial lacy reticular lung diseas e most likely primarily representing fibrosis without consolidation. There is a 1.7 cm rounded densit y in the right lower lobe posteriorly with possibility of malignancy not excludable. Minimal 3 to six -month followup CT scan is recommended to observe for stability. Farooq Diallo MD on August 09, 2016 at 14:29 Board Certified Radiologist. This report was verified electronically.
--- NOTE | 2016-08-09 15:17 | PD.CARD.PN ---
Subjective Subjective Remarks No chest pain, mild shortness of breath Objective Medications Current Medications Medications (Trade) Dose Ordered Sig/Wilberto Route Start Time Stop Time Status Last Admin (NS Flush) 2 ml UNSCH PRN FLUSH 08/05/16 21:15 (NS Flush) 2 ml BID FLUSH 08/06/16 09:00 08/09/16 08:48 (Tylenol) 650 mg Q4H PRN PO 08/05/16 21:15 (Zofran Inj) 4 mg Q6H PRN IVP 08/05/16 21:15 (Colace) 100 mg Q12HR PO 08/05/16 21:45 08/09/16 08:49 (Ambien) 5 mg HS PRN PO 08/05/16 21:45 08/08/16 20:58 (Lovenox Inj) 40 mg Q24H SQ 08/05/16 22:00 08/08/16 20:59 (Narcan Inj) 0.4 mg UNSCH PRN IV 08/05/16 21:15 (Apresoline Inj) 20 mg Q4H PRN IV PUSH 08/05/16 21:45 (Ativan) 0.5 mg Q8H PRN PO 08/05/16 21:45 08/06/16 15:25 (Catapres) 0.1 mg Q6H PRN PO 08/05/16 21:45 Enalaprilat 2.5 mg 2.5 mg Q6H PRN IV PUSH 08/05/16 21:45 (Levaquin 750 Mg Premix Inj) 150 ml @ 100 mls/hr Q24H IV 08/05/16 22:00 08/08/16 21:06 ([place] 5-325 Mg) 1 tab Q4H PRN PO 08/05/16 21:45 (Synthroid) 50 mcg DAILY@0600 PO 08/07/16 06:00 08/09/16 05:39 (Zoloft) 100 mg DAILY PO 08/06/16 10:00 08/09/16 08:49 (Lipitor) 40 mg HS PO 08/06/16 21:00 08/08/16 21:01 (Aspirin Chew) 81 mg DAILY CHEW 08/07/16 09:00 08/09/16 08:49 (SoluMEDROL INJ) 40 mg Q6H IV 08/07/16 15:00 08/09/16 08:49 Fluticasone Propionate 1 puff 1 puff BID INH 08/08/16 11:00 08/09/16 08:49 (NS 1000 ml Inj) 1,000 ml @ 84 mls/hr [id number] IV 08/09/16 11:45 08/09/16 13:20 (Protonix) 40 mg Q24H PO 08/09/16 21:00 Vital Signs / I&O Vital Signs Date Time Temp Pulse Resp B/P Pulse Ox O2 Delivery O2 Flow Rate FiO2 08/09/16 12:00 97.2 93 16 105/53 89 08/09/16 10:15 Nasal Cannula 3.00 08/09/16 08:00 97.4 67 16 123/56 94 08/09/16 08:00 94 Nasal Cannula 4.00 08/09/16 04:00 97.5 71 18 134/61 92 08/09/16 00:00 97.4 72 16 109/60 93 08/08/16 20:00 97.3 81 16 105/56 92 08/08/16 20:00 Nasal Cannula 3.00 08/08/16 19:59 84 08/08/16 19:33 93 Nasal Cannula 5.00 08/08/16 16:00 98.0 69 16 111/67 92 I/O 08/08/16 08/08/16 08/08/16 08/09/16 08/09/16 08/09/16 07:00 15:00 23:00 07:00 15:00 23:00 Intake Total 400 ml 360 ml 360 ml 240 ml 192 ml Output Total 300 ml 475 ml 200 ml Balance 100 ml 360 ml -115 ml 40 ml 192 ml Intake Oral 240 ml 360 ml 360 ml 240 ml IV Total 160 ml 192 ml Output Urine Total 300 ml 475 ml 200 ml # Voids 1 2 # Bowel Movements 1 0 0 Physical Exam GENERAL: NAD, AAOx3 SKIN: Warm and dry. HEAD: Atraumatic. Normocephalic. EYES: Pupils equal and round. No scleral icterus. No injection or drainage. ENT: No nasal bleeding or discharge. Mucous membranes pink and moist. NECK: Trachea midline. No JVD. CARDIOVASCULAR: Regular rate and rhythm. RESPIRATORY: No accessory muscle use. Mild rhonchi bilaterally GASTROINTESTINAL: Abdomen soft, non-tender, nondistended. Hepatic and splenic margins not palpable. MUSCULOSKELETAL: Extremities without clubbing, cyanosis, or edema. No obvious deformities. NEUROLOGICAL: Awake and alert. No obvious cranial nerve deficits. Motor grossly within normal limits. Five out of 5 muscle strength in the arms and legs. Normal speech. PSYCHIATRIC: Appropriate mood and affect; insight and judgment normal. Laboratory Laboratory Tests Test 08/09/16 06:44 White Blood Count 7.6 TH/MM3 Red Blood Count 3.48 MIL/MM3 Hemoglobin 11.9 GM/DL Hematocrit 33.3 % Mean Corpuscular Volume 95.8 FL Mean Corpuscular Hemoglobin 34.2 PG Mean Corpuscular Hemoglobin 35.6 % Concent Red Cell Distribution Width 12.8 % Platelet Count 215 TH/MM3 Mean Platelet Volume 9.6 FL Neutrophils (%) (Auto) 84.6 % Lymphocytes (%) (Auto) 5.0 % Monocytes (%) (Auto) 10.3 % Eosinophils (%) (Auto) 0.0 % Basophils (%) (Auto) 0.1 % Neutrophils # (Auto) 6.4 TH/MM3 Lymphocytes # (Auto) 0.4 TH/MM3 Monocytes # (Auto) 0.8 TH/MM3 Eosinophils # (Auto) 0.0 TH/MM3 Basophils # (Auto) 0.0 TH/MM3 CBC Comment DIFF FINAL Differential Comment Sodium Level 137 MEQ/L Potassium Level 4.2 MEQ/L Chloride Level 96 MEQ/L Carbon Dioxide Level 31.8 MEQ/L Anion Gap 9 MEQ/L Blood Urea Nitrogen 24 MG/DL Creatinine 0.91 MG/DL Estimat Glomerular Filtration 80 ML/MIN Rate Random Glucose 159 MG/DL Calcium Level 7.8 MG/DL Assessment and Plan Problem List: (1) PNA (pneumonia) (2) Mourning (3) Acute exacerbation of CHF (congestive heart failure) (4) Elevated troponin (5) Shortness of breath Assessment and Plan 1) Minimal troponin spill, most likely secondary to acute illness 2) Previous cardiac catheterization he was told that they could not do anything , and to continue medical management (done at at [facility] 03/2014, bypass grafts closed, offered repeat CABG but did not want to undergo, 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 most likely continue medical management, will follow up with his chief deputy coroner (Dr. Mi) for continual work up 4) EF 55-60%, LVH 5) Spoke to the patient's son who is in agreement with the plan from a cardiovascular standpoint Problem Qualifiers (1) Acute exacerbation of CHF (congestive heart failure): Qualified Code: I50.9 - Acute on chronic congestive heart failure, unspecified congestive heart failure type Sixto Pelletier DO Aug 09, 2016 15:17
[2016-08-09] MEDS: LEVOFLOXACIN 750 MG PREMIX INJ 150 ML IV SCH (20:54)
[2016-08-09] MEDS: PANTOPRAZOLE SOD 40 MG DELAYED RELEASE TAB PO SCH (20:55)
[2016-08-09] MEDS: ZOLPIDEM TARTRATE 5 MG TAB PO PRN (20:55)
[2016-08-09] MEDS: ATORVASTATIN 40 MG TAB PO SCH (20:55)
[2016-08-09] MEDS: ENOXAPARIN SODIUM 40 MG/0.4 ML SYRINGE SQ SCH (20:55)
[2016-08-10] VITALS (9 sets, daily range): BP systolic 121–154; BP diastolic 61–72; PULSE 68–98; RESP 17–20; TEMP 97–97.3; O2SAT 90–97
[2016-08-10] MEDS: methylPREDNISolone SOD SUCC 40 MG/1 ML VIAL IV SCH ×4 (04:14→20:57)
[2016-08-10] MEDS: LEVOTHYROXINE SODIUM 50 MCG TAB PO SCH (07:36)
[2016-08-10 07:40] LABS: AUTOMATED NEUTROPHIL # 7.3 TH/MM3 (1.8-7.7); BASOPHIL % 0.1 % (0.0-2.0); HEMATOCRIT 33.4 % (39.0-51.0); LYMPHOCYTE # 0.5 TH/MM3 (1.0-4.8); MEAN CELL VOLUME 94.6 FL (80.0-100.0); MEAN CORPUSCULAR HEMOGLOBIN 33.9 PG (27.0-34.0); MEAN CORPUSCULAR HGB CONC 35.8 % (32.0-36.0); NEUT % 83.9 % (16.0-70.0); PLATELET COUNT 231 TH/MM3 (150-450); RED BLOOD COUNT 3.53 MIL/MM3 (4.50-5.90); WHITE BLOOD COUNT 8.8 TH/MM3 (4.0-11.0)
[2016-08-10 07:46] LABS: HEMO FLAGS AUTO DIFF
[2016-08-10 07:59] LABS: BICARBONATE 31.7 MEQ/L (21.0-32.0); MAGNESIUM 2.7 MG/DL (1.5-2.5); POTASSIUM 4.9 MEQ/L (3.5-5.1)
[2016-08-10 09:06] LABS: PLATELET ESTIMATE SMEAR NORMAL (NORMAL); PLATELET MORPHOLOGY ENLARGED (NORMAL); SCAN/DIFF AUTO DIFF CONFIRMED
[2016-08-10] MEDS: DOCUSATE SODIUM 100 MG CAP PO SCH ×2 (09:56→20:57)
[2016-08-10] MEDS: ASPIRIN 81 MG CHEW TAB CHEW SCH (09:56)
[2016-08-10] MEDS: SERTRALINE HCL 100 MG TAB PO SCH (09:57)
[2016-08-10] MEDS: SODIUM CHLORIDE 0.9% FLUSH 5 ML FLUSH FLUSH SCH ×2 (09:57→21:03)
[2016-08-10] MEDS: FLUTICASONE PROPIONATE 220 MCG/ACT 12 GM INHALER INH SCH ×2 (09:59→20:58)
--- NOTE | 2016-08-10 10:30 | HHI.FPPN ---
Subjective Remarks c/o cough c/o general pain C/O SINUS CONGESTION D/W RN Objective Vitals Vital Signs Date Time Temp Pulse Resp B/P Pulse Ox O2 Delivery O2 Flow Rate FiO2 08/10/16 08:50 94 Nasal Cannula 3.00 08/10/16 08:00 97.2 74 20 130/62 90 08/10/16 04:00 97.1 68 18 129/72 91 08/10/16 00:00 97.2 71 17 121/61 92 08/09/16 21:33 95 Nasal Cannula 3.00 08/09/16 21:08 Nasal Cannula 3.00 08/09/16 20:00 76 08/09/16 20:00 97.1 75 18 111/54 94 08/09/16 16:00 97.5 75 16 117/58 91 08/09/16 12:00 97.2 93 16 105/53 89 I/O 08/09/16 08/09/16 08/09/16 08/10/16 08/10/16 08/10/16 07:00 15:00 23:00 07:00 15:00 23:00 Intake Total 240 ml 912 ml 480 ml 100 ml Output Total 200 ml Balance 40 ml 912 ml 480 ml 100 ml Intake Oral 240 ml 720 ml 480 ml 100 ml IV Total 192 ml Output Urine Total 200 ml # Voids 2 2 # Bowel Movements 0 0 0 Result Diagram: 08/10/16 0607 08/10/16 0607 Imaging Last [address] Angiography 08/09/16 0000 Signed Impressions: Service Date/Time: Tuesday, August 09, 2016 14:17 - CONCLUSION: Negative for pulmonary embolization. 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 There is a 1.7 cm rounded density in the right lower lobe posteriorly with possibility of malignancy not excludable. Minimal 3 to six-month followup CT scan is recommended to observe for stability. Farooq Diallo MD Objective Remarks GENERAL: SKIN: Warm and dry. HEAD: Atraumatic. Normocephalic. EYES: Pupils equal and round. No scleral icterus. No injection or drainage. ENT: No nasal bleeding or discharge. Mucous membranes pink and moist. NECK: Trachea midline. No JVD. CARDIOVASCULAR: Regular rate and rhythm. RESPIRATORY: R/R B. Breath sounds equal bilaterally. GASTROINTESTINAL: Abdomen soft, non-tender, nondistended. Hepatic and splenic margins not palpable. MUSCULOSKELETAL: Extremities without clubbing, cyanosis, or edema. No obvious deformities. NEUROLOGICAL: Awake and alert. No obvious cranial nerve deficits. Motor grossly within normal limits. Five out of 5 muscle strength in the arms and legs. Normal speech. PSYCHIATRIC: Appropriate mood and affect; insight and judgment normal. Medications and IVs Current Medications Medications (Trade) Dose Ordered Sig/Wilberto Route Start Time Stop Time Status Last Admin (NS Flush) 2 ml UNSCH PRN FLUSH 08/05/16 21:15 (NS Flush) 2 ml BID FLUSH 08/06/16 09:00 08/10/16 09:57 (Tylenol) 650 mg Q4H PRN PO 08/05/16 21:15 (Zofran Inj) 4 mg Q6H PRN IVP 08/05/16 21:15 (Colace) 100 mg Q12HR PO 08/05/16 21:45 08/10/16 09:56 (Ambien) 5 mg HS PRN PO 08/05/16 21:45 08/09/16 20:55 (Lovenox Inj) 40 mg Q24H SQ 08/05/16 22:00 08/09/16 20:55 (Narcan Inj) 0.4 mg UNSCH PRN IV 08/05/16 21:15 (Apresoline Inj) 20 mg Q4H PRN IV PUSH 08/05/16 21:45 (Ativan) 0.5 mg Q8H PRN PO 08/05/16 21:45 08/06/16 15:25 (Catapres) 0.1 mg Q6H PRN PO 08/05/16 21:45 Enalaprilat 2.5 mg 2.5 mg Q6H PRN IV PUSH 08/05/16 21:45 (Levaquin 750 Mg Premix Inj) 150 ml @ 100 mls/hr Q24H IV 08/05/16 22:00 08/09/16 20:54 ([place] 5-325 Mg) 1 tab Q4H PRN PO 08/05/16 21:45 (Synthroid) 50 mcg DAILY@0600 PO 08/07/16 06:00 08/10/16 07:36 (Zoloft) 100 mg DAILY PO 08/06/16 10:00 08/10/16 09:57 (Lipitor) 40 mg HS PO 08/06/16 21:00 08/09/16 20:55 (Aspirin Chew) 81 mg DAILY CHEW 08/07/16 09:00 08/10/16 09:56 (SoluMEDROL INJ) 40 mg Q6H IV 08/07/16 15:00 08/10/16 09:57 Fluticasone Propionate 1 puff 1 puff BID INH 08/08/16 11:00 08/10/16 09:59 (NS 1000 ml Inj) 1,000 ml @ 84 mls/hr [id number] IV 08/09/16 11:45 08/09/16 23:40 (Protonix) 40 mg Q24H PO 08/09/16 21:00 08/09/16 20:55 A/P Assessment and Plan GRIEF REACTION AMS SEVERE SEPSIS NSTEMI. TROP NEG NOW. 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 There is a 1.7 cm rounded density in the right lower lobe posteriorly with possibility of malignancy not excludable. Minimal 3 to six-month followup CT scan is recommended to observe for stability. HYPERGLYCEMIA REMOTE GIB PANCYTOPENIA CAD CABG HTN CHRONIC SINUSITIS NASAL ABSCESSES HYPOTHYROIDISM HYPOGONADISM, ON TESTOST PATCH. UNDERSTANDS R/B CA AND INCR CAD. PLAN: PULM CONSULT IVF IV STEROIDS IV PROTONIX GUIAC STOOL PSYCHIATRY CONSULT FOR HORTON ACT CARDIOLOGY CONSULT. MAY NEED ISCHEMIC WORKUP AFTER PNA CLEARS. TESTOSTERONE PATCH START FLUTICASONE, WANTS ADVAIR SEE MY ORDERS FOR MED AND LAB CHANGES PLEASE. Noe García MD Aug 10, 2016 10:30
[2016-08-10] MEDS: SODIUM CHLOR 0.9% 1000 ML INJ 1,000 ML IV SCH ×2 (11:35→23:16)
[2016-08-10] MEDS: PANTOPRAZOLE SOD 40 MG DELAYED RELEASE TAB PO SCH (20:57)
[2016-08-10] MEDS: ENOXAPARIN SODIUM 40 MG/0.4 ML SYRINGE SQ SCH (20:57)
[2016-08-10] MEDS: ZOLPIDEM TARTRATE 5 MG TAB PO PRN (20:57)
[2016-08-10] MEDS: LEVOFLOXACIN 750 MG PREMIX INJ 150 ML IV SCH (20:57)
[2016-08-10] MEDS: ATORVASTATIN 40 MG TAB PO SCH (20:57)
[2016-08-11] VITALS (7 sets, daily range): BP systolic 127–151; BP diastolic 56–87; PULSE 64–90; RESP 17–22; TEMP 97.1–98.8; O2SAT 89–93
[2016-08-11] MEDS: methylPREDNISolone SOD SUCC 40 MG/1 ML VIAL IV SCH ×4 (04:40→22:03)
[2016-08-11] MEDS: LEVOTHYROXINE SODIUM 50 MCG TAB PO SCH (06:11)
[2016-08-11 08:13] LABS: AUTOMATED NEUTROPHIL # 9.4 TH/MM3 (1.8-7.7); BASOPHIL % 0.3 % (0.0-2.0); HEMATOCRIT 37.2 % (39.0-51.0); LYMPH % 4.4 % (9.0-44.0); LYMPHOCYTE # 0.5 TH/MM3 (1.0-4.8); MEAN CELL VOLUME 94.2 FL (80.0-100.0); MEAN CORPUSCULAR HGB CONC 35.1 % (32.0-36.0); NEUT % 86.3 % (16.0-70.0); PLATELET COUNT 323 TH/MM3 (150-450); RED BLOOD COUNT 3.95 MIL/MM3 (4.50-5.90); RED CELL DISTRIBUTION WIDTH 12.9 % (11.6-17.2); WHITE BLOOD COUNT 10.9 TH/MM3 (4.0-11.0)
[2016-08-11 08:16] LABS: HEMO FLAGS AUTO DIFF
[2016-08-11 08:44] LABS: BICARBONATE 29.3 MEQ/L (21.0-32.0); POTASSIUM 3.9 MEQ/L (3.5-5.1)
[2016-08-11] MEDS: SODIUM CHLORIDE 0.9% FLUSH 5 ML FLUSH FLUSH SCH ×2 (08:44→22:04)
[2016-08-11] MEDS: FLUTICASONE PROPIONATE 220 MCG/ACT 12 GM INHALER INH SCH ×2 (08:44→22:04)
[2016-08-11] MEDS: DOCUSATE SODIUM 100 MG CAP PO SCH ×2 (08:46→22:03)
[2016-08-11] MEDS: SERTRALINE HCL 100 MG TAB PO SCH (08:46)
[2016-08-11] MEDS: ASPIRIN 81 MG CHEW TAB CHEW SCH (08:46)
[2016-08-11 09:01] LABS: MYELOCYTES 3 % (0-0); NEUTROPHIL # MANUAL DIFF 9.6 TH/MM3 (1.8-7.7); POLYS (SEG NEUTROPHILS) 85 % (16-70); WBC DIFF SAMPLE 100
[2016-08-11 09:02] LABS: PLATELET ESTIMATE SMEAR NORMAL (NORMAL); PLATELET MORPHOLOGY NORMAL (NORMAL); SCAN/DIFF FINAL DIFF MANUAL
--- NOTE | 2016-08-11 11:38 | HHI.FPPN ---
Subjective Remarks harsh cough congested pt thinks he would decline at home d/w RN Objective Vitals Vital Signs Date Time Temp Pulse Resp B/P Pulse Ox O2 Delivery O2 Flow Rate FiO2 08/11/16 04:00 97.1 74 18 151/72 91 08/11/16 00:00 97.5 64 17 129/87 91 08/10/16 21:05 Nasal Cannula 3.00 08/10/16 20:00 97.3 77 18 154/69 93 08/10/16 19:40 98 08/10/16 18:45 95 08/10/16 16:00 97.1 76 20 148/72 92 08/10/16 12:00 Nasal Cannula 3.00 08/10/16 12:00 97.0 68 20 136/61 97 I/O 08/10/16 08/10/16 08/10/16 08/11/16 08/11/16 08/11/16 07:00 15:00 23:00 07:00 15:00 23:00 Intake Total 100 ml 960 ml 240 ml 240 ml Output Total 275 ml Balance 100 ml 960 ml 240 ml -35 ml Intake Oral 100 ml 960 ml 240 ml 240 ml Output Urine Total 275 ml # Voids 2 3 2 # Bowel Movements 0 1 1 0 Result Diagram: 08/11/16 0659 08/11/16 0659 Objective Remarks GENERAL: SKIN: Warm and dry. HEAD: Atraumatic. Normocephalic. EYES: Pupils equal and round. No scleral icterus. No injection or drainage. ENT: No nasal bleeding or discharge. Mucous membranes pink and moist. NECK: Trachea midline. No JVD. CARDIOVASCULAR: Regular rate and rhythm. RESPIRATORY: R/R B. Breath sounds equal bilaterally. GASTROINTESTINAL: Abdomen soft, non-tender, nondistended. Hepatic and splenic margins not palpable. MUSCULOSKELETAL: Extremities without clubbing, cyanosis, or edema. No obvious deformities. NEUROLOGICAL: Awake and alert. No obvious cranial nerve deficits. Motor grossly within normal limits. Five out of 5 muscle strength in the arms and legs. Normal speech. PSYCHIATRIC: Appropriate mood and affect; insight and judgment normal. Medications and IVs Current Medications Medications (Trade) Dose Ordered Sig/Wilberto Route Start Time Stop Time Status Last Admin (NS Flush) 2 ml UNSCH PRN FLUSH 08/05/16 21:15 (NS Flush) 2 ml BID FLUSH 08/06/16 09:00 08/11/16 08:44 (Tylenol) 650 mg Q4H PRN PO 08/05/16 21:15 (Zofran Inj) 4 mg Q6H PRN IVP 08/05/16 21:15 (Colace) 100 mg Q12HR PO 08/05/16 21:45 08/11/16 08:46 (Ambien) 5 mg HS PRN PO 08/05/16 21:45 08/10/16 20:57 (Lovenox Inj) 40 mg Q24H SQ 08/05/16 22:00 08/10/16 20:57 (Narcan Inj) 0.4 mg UNSCH PRN IV 08/05/16 21:15 (Apresoline Inj) 20 mg Q4H PRN IV PUSH 08/05/16 21:45 (Ativan) 0.5 mg Q8H PRN PO 08/05/16 21:45 08/06/16 15:25 (Catapres) 0.1 mg Q6H PRN PO 08/05/16 21:45 Enalaprilat 2.5 mg 2.5 mg Q6H PRN IV PUSH 08/05/16 21:45 (Levaquin 750 Mg Premix Inj) 150 ml @ 100 mls/hr Q24H IV 08/05/16 22:00 08/10/16 20:57 ([place] 5-325 Mg) 1 tab Q4H PRN PO 08/05/16 21:45 (Synthroid) 50 mcg DAILY@0600 PO 08/07/16 06:00 08/11/16 06:11 (Zoloft) 100 mg DAILY PO 08/06/16 10:00 08/11/16 08:46 (Lipitor) 40 mg HS PO 08/06/16 21:00 08/10/16 20:57 (Aspirin Chew) 81 mg DAILY CHEW 08/07/16 09:00 08/11/16 08:46 (SoluMEDROL INJ) 40 mg Q6H IV 08/07/16 15:00 08/11/16 08:44 Fluticasone Propionate 1 puff 1 puff BID INH 08/08/16 11:00 08/11/16 08:44 (NS 1000 ml Inj) 1,000 ml @ 84 mls/hr [id number] IV 08/09/16 11:45 08/10/16 23:16 (Protonix) 40 mg Q24H PO 08/09/16 21:00 08/10/16 20:57 A/P Assessment and Plan GRIEF REACTION AMS SEVERE SEPSIS NSTEMI. TROP NEG NOW. 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 There is a 1.7 cm rounded density in the right lower lobe posteriorly with possibility of malignancy not excludable. Minimal 3 to six-month followup CT scan is recommended to observe for stability. HYPERGLYCEMIA REMOTE GIB PANCYTOPENIA CAD CABG HTN CHRONIC SINUSITIS NASAL ABSCESSES HYPOTHYROIDISM HYPOGONADISM, ON TESTOST PATCH. UNDERSTANDS R/B CA AND INCR CAD. PLAN: PULM RECONSULT DC IVF IV STEROIDS IV PROTONIX GUIAC STOOL PSYCHIATRY CONSULT FOR [facility] CONSULT. TESTOSTERONE PATCH START FLUTICASONE, WANTS ADVAIR SEE MY ORDERS FOR MED AND LAB CHANGES PLEASE. 2 Noe García MD Aug 11, 2016 11:38
[2016-08-11] MEDS: LORazepam 0.5 MG TAB PO PRN (17:45)
[2016-08-11] MEDS: ATORVASTATIN 40 MG TAB PO SCH (22:02)
[2016-08-11] MEDS: LEVOFLOXACIN 750 MG PREMIX INJ 150 ML IV SCH (22:02)
[2016-08-11] MEDS: PANTOPRAZOLE SOD 40 MG DELAYED RELEASE TAB PO SCH (22:03)
[2016-08-11] MEDS: ENOXAPARIN SODIUM 40 MG/0.4 ML SYRINGE SQ SCH (22:03)
[2016-08-11] MEDS: ZOLPIDEM TARTRATE 5 MG TAB PO PRN (22:06)
[2016-08-12] VITALS (11 sets, daily range): BP systolic 121–147; BP diastolic 57–75; PULSE 73–100; RESP 18–22; TEMP 95.6–98.2; O2SAT 84–94
[2016-08-12] MEDS: methylPREDNISolone SOD SUCC 40 MG/1 ML VIAL IV SCH ×4 (03:44→21:53)
[2016-08-12] MEDS: LEVOTHYROXINE SODIUM 50 MCG TAB PO SCH (05:24)
[2016-08-12] MEDS: DOCUSATE SODIUM 100 MG CAP PO SCH ×2 (09:00→21:54)
[2016-08-12] MEDS: FLUTICASONE PROPIONATE 220 MCG/ACT 12 GM INHALER INH SCH (09:09)
[2016-08-12] MEDS: SERTRALINE HCL 100 MG TAB PO SCH (09:10)
[2016-08-12] MEDS: SODIUM CHLORIDE 0.9% FLUSH 5 ML FLUSH FLUSH SCH ×2 (09:11→21:54)
[2016-08-12] MEDS: ASPIRIN 81 MG CHEW TAB CHEW SCH (09:11)
[2016-08-12] MEDS ORDERED: RESP: ALBUTEROL 2.5 MG/IPRATROPIUM 0.5 MG NEB (SCH) ONE (09:41)
[2016-08-12] MEDS ORDERED: RESP: ALBUTEROL 2.5 MG/3 ML NEB (PRN) INH (11:30)
[2016-08-12] MEDS ORDERED: RESP: ALBUTEROL 2.5 MG/3 ML NEB (SCH) INH (12:00)
--- NOTE | 2016-08-12 12:17 | HHI.FPPN ---
Subjective Remarks INCR SPUTUM HYPOXIC ON RA D/W SON D/W PT D/W RN CALLED OUT TO DR JEREMÍAS GOLDBERG Objective Vitals Vital Signs Date Time Temp Pulse Resp B/P Pulse Ox O2 Delivery O2 Flow Rate FiO2 08/12/16 09:45 93 Nasal Cannula 3.00 08/12/16 08:38 95.6 97 22 121/57 84 08/12/16 04:00 97.2 77 20 147/75 91 08/12/16 00:00 98.2 75 20 123/60 94 08/11/16 20:57 71 08/11/16 20:30 Nasal Cannula 3.00 08/11/16 20:00 97.1 73 20 132/60 93 08/11/16 16:00 97.3 78 22 136/65 92 I/O 08/11/16 08/11/16 08/11/16 08/12/16 08/12/16 08/12/16 07:00 15:00 23:00 07:00 15:00 23:00 Intake Total 240 ml 840 ml 240 ml Output Total 275 ml 4 ml 700 ml Balance -35 ml 836 ml 240 ml -700 ml Intake Oral 240 ml 840 ml 240 ml Output Urine Total 275 ml 4 ml 700 ml # Bowel Movements 0 0 Result Diagram: 08/11/1659 08/11/1659 Objective Remarks GENERAL: SKIN: Warm and dry. HEAD: Atraumatic. Normocephalic. EYES: Pupils equal and round. No scleral icterus. No injection or drainage. ENT: No nasal bleeding or discharge. Mucous membranes pink and moist. NECK: Trachea midline. No JVD. CARDIOVASCULAR: Regular rate and rhythm. RESPIRATORY: R/R B. Breath sounds equal bilaterally. GASTROINTESTINAL: Abdomen soft, non-tender, nondistended. Hepatic and splenic margins not palpable. MUSCULOSKELETAL: Extremities without clubbing, cyanosis, or edema. No obvious deformities. NEUROLOGICAL: Awake and alert. No obvious cranial nerve deficits. Motor grossly within normal limits. Five out of 5 muscle strength in the arms and legs. Normal speech. PSYCHIATRIC: Appropriate mood and affect; insight and judgment normal. Medications and IVs Current Medications Medications (Trade) Dose Ordered Sig/Wilberto Route Start Time Stop Time Status Last Admin (NS Flush) 2 ml UNSCH PRN FLUSH 08/05/16 21:15 (NS Flush) 2 ml BID FLUSH 08/06/16 09:00 08/12/16 09:11 (Tylenol) 650 mg Q4H PRN PO 08/05/16 21:15 (Zofran Inj) 4 mg Q6H PRN IVP 08/05/16 21:15 (Colace) 100 mg Q12HR PO 08/05/16 21:45 08/11/16 22:03 (Ambien) 5 mg HS PRN PO 08/05/16 21:45 08/11/16 22:06 (Lovenox Inj) 40 mg Q24H SQ 08/05/16 22:00 08/11/16 22:03 (Narcan Inj) 0.4 mg UNSCH PRN IV 08/05/16 21:15 (Apresoline Inj) 20 mg Q4H PRN IV PUSH 08/05/16 21:45 (Ativan) 0.5 mg Q8H PRN PO 08/05/16 21:45 08/11/16 17:45 (Catapres) 0.1 mg Q6H PRN PO 08/05/16 21:45 Enalaprilat 2.5 mg 2.5 mg Q6H PRN IV PUSH 08/05/16 21:45 (Levaquin 750 Mg Premix Inj) 150 ml @ 100 mls/hr Q24H IV 08/05/16 22:00 08/11/16 22:02 ([place] 5-325 Mg) 1 tab Q4H PRN PO 08/05/16 21:45 (Synthroid) 50 mcg DAILY@0600 PO 08/07/16 06:00 08/12/16 05:24 (Zoloft) 100 mg DAILY PO 08/06/16 10:00 08/12/16 09:10 (Lipitor) 40 mg HS PO 08/06/16 21:00 08/11/16 22:02 (Aspirin Chew) 81 mg DAILY CHEW 08/07/16 09:00 08/12/16 09:11 (SoluMEDROL INJ) 40 mg Q6H IV 08/07/16 15:00 08/12/16 09:11 (Flovent Hfa 220 Mcg Inh) 1 puff BID INH 08/08/16 11:00 08/12/16 09:09 (Protonix) 40 mg Q24H PO 08/09/16 21:00 08/11/16 22:03 A/P Assessment and Plan GRIEF REACTION AMS, RESOLVED. SEVERE SEPSIS, RESOLVED. 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 There is a 1.7 cm rounded density in the right lower lobe posteriorly with possibility of malignancy not excludable. Minimal 3 to six-month followup CT scan is recommended to observe for stability. NSTEMI. TROP NEG NOW. HYPERGLYCEMIA REMOTE GIB PANCYTOPENIA CAD CABG HTN CHRONIC SINUSITIS NASAL ABSCESSES HYPOTHYROIDISM HYPOGONADISM, ON TESTOST PATCH. UNDERSTANDS R/B CA AND INCR CAD. PLAN: PULM RECONSULT DC IVF IV STEROIDS IV PROTONIX GUIAC STOOL PSYCHIATRY CONSULT FOR [facility] CONSULT. TESTOSTERONE PATCH START FLUTICASONE, WANTS ADVAIR SEE MY ORDERS FOR MED AND LAB CHANGES PLEASE. 2 Noe García MD Aug 12, 2016 12:17
[2016-08-12 15:23] LABS: BLOOD GAS BASE EXCESS 1.6 mmol/L (-2-2); BLOOD GAS HCO3 25 mmol/L (22-26); BLOOD GAS METHEMOGLOBIN 0.9 % (0-2); BLOOD GAS O2 HGB SATURATION 90 % (90-100); BLOOD GAS OXYGEN CONTENT 17.1 Vol % (12.0-20.0); BLOOD GAS PCO2 34 mmHg (38-42); BLOOD GAS PO2 64 mmHg (61-120); BLOOD GAS TOTAL HGB 13.6 G/DL (12.0-16.0); CRITICAL VALUE NO; DRAW SITE LT RADIAL; FIO2 28 %; LITER FLOW 2 L/M; NUMBER OF ARTERIAL PUNCTURES 1; OXYGEN DEVICE NASAL CANNULA; STAT NO; TEMP CORR TO 98.6; ULNAR PULSE PRESENT
[2016-08-12] MEDS: RESP: ALBUTEROL 2.5 MG/IPRATROPIUM 0.5 MG NEB (SCH) NEB ×2 (15:47→22:39)
[2016-08-12] MEDS: ENOXAPARIN SODIUM 40 MG/0.4 ML SYRINGE SQ SCH (21:53)
[2016-08-12] MEDS: PANTOPRAZOLE SOD 40 MG DELAYED RELEASE TAB PO SCH (21:54)
[2016-08-12] MEDS: ATORVASTATIN 40 MG TAB PO SCH (21:54)
[2016-08-12] MEDS: LEVOFLOXACIN 750 MG PREMIX INJ 150 ML IV SCH (21:55)
[2016-08-12] MEDS: ZOLPIDEM TARTRATE 5 MG TAB PO PRN (22:15)
[2016-08-13] VITALS (9 sets, daily range): BP systolic 114–139; BP diastolic 56–65; PULSE 76–95; RESP 18–22; TEMP 94.1–97.9; O2SAT 93–96
[2016-08-13] MEDS: methylPREDNISolone SOD SUCC 40 MG/1 ML VIAL IV SCH ×4 (02:57→21:10)
[2016-08-13] MEDS: RESP: ALBUTEROL 2.5 MG/IPRATROPIUM 0.5 MG NEB (SCH) NEB ×4 (04:30→16:05)
[2016-08-13] MEDS: LEVOTHYROXINE SODIUM 50 MCG TAB PO SCH (05:42)
[2016-08-13] MEDS: SERTRALINE HCL 100 MG TAB PO SCH (08:05)
[2016-08-13] MEDS: DOCUSATE SODIUM 100 MG CAP PO SCH ×2 (08:05→21:10)
[2016-08-13] MEDS: SODIUM CHLORIDE 0.9% FLUSH 5 ML FLUSH FLUSH SCH ×2 (08:06→21:12)
[2016-08-13] MEDS: ASPIRIN 81 MG CHEW TAB CHEW SCH (08:06)
--- NOTE | 2016-08-13 08:54 | MB ---
cc: HARLEY CERVANTES MD, JOHN DATE OF CONSULTATION: 08/12/2016 REASON FOR CONSULTATION COPD and lung nodule. HISTORY OF PRESENT ILLNESS This is an 81-year-old white male who was admitted with a history of cough, cold, chest congestion and wheezing. He apparently was sick with an episode of bronchitis and his was also illness in bed with bronchitis was found to have in bed, and the patient subsequently had to be brought to the ER for evaluation of his respiratory illness. He had been coughing and was hypoxic upon arrival. He was suspected to be septic with pneumonia. A CT chest was done following admission and it showed evidence of bilateral lower lobe interstitial reticular densities representing fibrosis, and a 1.7 cm rounded density in the right lower lobe posteriorly which may be neoplastic. The patient had a cough bringing up foamy white sputum but denied hemoptysis. He has had no fevers or chills or night sweats, but has had some leg swelling. PAST MEDICAL HISTORY 1. Coronary artery disease. 2. Hypertension. 3. History of coronary artery bypass grafting x2. Denies any other history of surgery. ALLERGIES None listed. HABITS The patient smoked one pack per day for about 25 years and then quit. Drinks alcohol occasionally. Denies any asbestos exposure. 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 There is a history of hypertension in the family. REVIEW OF SYSTEMS The patient has had some weight loss. He has dizzy attacks, postnasal drip, cough with expectoration, epigastric distress. No nausea or vomiting. No urinary symptoms. No leg or calf muscle pains. He does have some joint pains of his extremities. PHYSICAL EXAMINATION GENERAL: This is an elderly averagely built white male in no acute distress. VITAL SIGNS: Blood pressure 112/60, pulse 68, respirations 16, temperature 97.5. HEENT: Head normocephalic. Pupils reactive. Tongue is moist. Throat is mildly injected. Nasal mucosae is edematous. NECK: Supple. No venous distension. No bruits, thyroid enlargement or lymphadenopathy. CHEST: Equal movements with decreased excursions. Breath sounds slightly diminished at the bases with wheezes bilaterally and occasional bibasilar crackles more so on the right side. HEART: Heart sounds are regular. S1 and S2. No murmur. No S3. ABDOMEN: Soft, benign. No masses or organomegaly. No tenderness. Bowel sounds are active. EXTREMITIES: No clubbing. Mild peripheral edema. Decreased pulses. NEUROLOGIC: Reflexes are 1+ with no gross motor deficits. Homans sign is negative. Cranial nerves grossly intact. RECTAL: Deferred. SKIN: No lesions observed. IMPRESSION 1. COPD with chronic bronchitis and acute exacerbation. 2. Basilar pneumonia and sepsis. 3. Right lower lobe lung nodule, etiology undetermined. 4. History of hypertension. 5. Coronary artery disease status post coronary artery bypass grafting. PLAN The patient will be continued on antibiotic coverage as ordered. We will use Solu-Medrol 40 mg IV q.12h. A bedside pulmonary function study will be done with bronchodilators. A blood gas study will be done as well. The patient's lung nodules need further work-up and he will need a PET/CT done as an outpatient and possibly a bronchoscopy and/or biopsy if the PET is positive. Nebulized DuoNeb solution will be continued q.i.d. and Breo Ellipta 100/25 mcg one puff daily was added. Oxygen supplementation at 2 liters nasal cannula, and a six-minute walk test to see if he qualifies for home oxygen. I will follow and discuss the case with you Dr. Cervantes. Thank you for this consultation. John Bullard MD JCHRIS/REGI /10:20 PM /8:42 AM
--- NOTE | 2016-08-13 09:30 | HHI.FPPN ---
Subjective Remarks REQS EXPECTORANT C/O SOB C/O SPUTUM D/W RN Objective Vitals Vital Signs Date Time Temp Pulse Resp B/P Pulse Ox O2 Delivery O2 Flow Rate FiO2 08/13/16 08:09 95 Nasal Cannula 3.00 08/13/16 05:27 97.2 84 18 139/65 93 08/12/16 23:18 97.5 78 18 121/58 92 08/12/16 22:39 92 Nasal Cannula 2.00 08/12/16 20:45 Nasal Cannula 2.00 08/12/16 20:08 97.2 76 18 127/58 92 08/12/16 19:57 74 08/12/16 16:00 97.4 73 22 126/63 91 08/12/16 12:00 97.4 86 22 130/63 93 08/12/16 09:45 93 Nasal Cannula 3.00 I/O 08/12/16 08/12/16 08/12/16 08/13/16 08/13/16 08/13/16 07:00 15:00 23:00 07:00 15:00 23:00 Intake Total 480 ml 240 ml 100 ml Output Total 700 ml 500 ml 350 ml 1495 ml Balance -700 ml -20 ml -110 ml -1395 ml Intake Oral 480 ml 240 ml 100 ml Output Urine Total 700 ml 500 ml 350 ml 1495 ml # Voids 5 # Bowel Movements 0 0 1 0 Result Diagram: 08/11/1665808/11/1659 Objective Remarks GENERAL: SKIN: Warm and dry. HEAD: Atraumatic. Normocephalic. EYES: Pupils equal and round. No scleral icterus. No injection or drainage. ENT: No nasal bleeding or discharge. Mucous membranes pink and moist. NECK: Trachea midline. No JVD. CARDIOVASCULAR: Regular rate and rhythm. RESPIRATORY: R/R B. Breath sounds equal bilaterally. GASTROINTESTINAL: Abdomen soft, non-tender, nondistended. Hepatic and splenic margins not palpable. MUSCULOSKELETAL: Extremities without clubbing, cyanosis, or edema. No obvious deformities. NEUROLOGICAL: Awake and alert. No obvious cranial nerve deficits. Motor grossly within normal limits. Five out of 5 muscle strength in the arms and legs. Normal speech. PSYCHIATRIC: Appropriate mood and affect; insight and judgment normal. Medications and IVs Current Medications Medications (Trade) Dose Ordered Sig/Wilberto Route Start Time Stop Time Status Last Admin (NS Flush) 2 ml UNSCH PRN FLUSH 08/05/16 21:15 (NS Flush) 2 ml BID FLUSH 08/06/16 09:00 08/13/16 08:06 (Tylenol) 650 mg Q4H PRN PO 08/05/16 21:15 (Zofran Inj) 4 mg Q6H PRN IVP 08/05/16 21:15 (Colace) 100 mg Q12HR PO 08/05/16 21:45 08/13/16 08:05 (Ambien) 5 mg HS PRN PO 08/05/16 21:45 08/12/16 22:15 (Lovenox Inj) 40 mg Q24H SQ 08/05/16 22:00 08/12/16 21:53 (Narcan Inj) 0.4 mg UNSCH PRN IV 08/05/16 21:15 (Apresoline Inj) 20 mg Q4H PRN IV PUSH 08/05/16 21:45 (Ativan) 0.5 mg Q8H PRN PO 08/05/16 21:45 08/11/16 17:45 (Catapres) 0.1 mg Q6H PRN PO 08/05/16 21:45 Enalaprilat 2.5 mg 2.5 mg Q6H PRN IV PUSH 08/05/16 21:45 (Levaquin 750 Mg Premix Inj) 150 ml @ 100 mls/hr Q24H IV 08/05/16 22:00 08/12/16 21:55 ([place] 5-325 Mg) 1 tab Q4H PRN PO 08/05/16 21:45 (Synthroid) 50 mcg DAILY@0600 PO 08/07/16 06:00 08/13/16 05:42 (Zoloft) 100 mg DAILY PO 08/06/16 10:00 08/13/16 08:05 (Lipitor) 40 mg HS PO 08/06/16 21:00 08/12/16 21:54 (Aspirin Chew) 81 mg DAILY CHEW 08/07/16 09:00 08/13/16 08:06 (SoluMEDROL INJ) 40 mg Q6H IV 08/07/16 15:00 08/13/16 08:05 (Protonix) 40 mg Q24H PO 08/09/16 21:00 08/12/16 21:54 (Breo Ellipta 100-25 Inh) 1 puff DAILY INH 08/13/16 09:00 A/P Assessment and Plan GRIEF REACTION, STABLE, NONSUICIDAL. AMS, RESOLVED. SEVERE SEPSIS, RESOLVED. 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 There is a 1.7 cm rounded density in the right lower lobe posteriorly with possibility of malignancy not excludable. Minimal 3 to six-month followup CT scan is recommended to observe for stability. NSTEMI. TROP NEG NOW. HYPERGLYCEMIA REMOTE GIB PANCYTOPENIA CAD CABG HTN CHRONIC SINUSITIS NASAL ABSCESSES HYPOTHYROIDISM HYPOGONADISM, ON TESTOST PATCH. UNDERSTANDS R/B CA AND INCR CAD. PLAN: ADD MUCOMYST PULM CONSULT OFF IVF IV STEROIDS IV PROTONIX GUIAC STOOL CARDIOLOGY CONSULT. TESTOSTERONE PATCH START FLUTICASONE, WANTS ADVAIR SEE MY ORDERS FOR MED AND LAB CHANGES PLEASE. 2 Noe García MD Aug 13, 2016 09:30
--- NOTE | 2016-08-13 12:52 | HHI.PR ---
Subjective Remarks Cough and wheezing. PFT pending. No fever. Needs home O2 Objective Vital Signs Date Time Temp Pulse Resp B/P Pulse Ox O2 Delivery O2 Flow Rate FiO2 08/13/16 08:09 95 Nasal Cannula 3.00 08/13/16 08:00 94.4 89 22 124/60 96 08/13/16 08:00 95 Nasal Cannula 3.00 08/13/16 05:27 97.2 84 18 139/65 93 08/12/16 23:18 97.5 78 18 121/58 92 08/12/16 22:39 92 Nasal Cannula 2.00 08/12/16 20:45 Nasal Cannula 2.00 08/12/16 20:08 97.2 76 18 127/58 92 08/12/16 19:57 74 08/12/16 16:00 97.4 73 22 126/63 91 I/O 08/12/16 08/12/16 08/12/16 08/13/16 08/13/16 08/13/16 07:00 15:00 23:00 07:00 15:00 23:00 Intake Total 480 ml 240 ml 100 ml Output Total 700 ml 500 ml 350 ml 1495 ml Balance -700 ml -20 ml -110 ml -1395 ml Intake Oral 480 ml 240 ml 100 ml Output Urine Total 700 ml 500 ml 350 ml 1495 ml # Voids 5 # Bowel Movements 0 0 1 0 Result Diagram: 08/11/1659 08/11/16 0659 Objective Remarks GENERAL: This is an elderly averagely built white male in no acute distress. HEENT: Head normocephalic. Pupils reactive. Tongue is moist. Throat is mildly injected. Nasal mucosae is edematous. NECK: Supple. No venous distension. No bruits, thyroid enlargement or lymphadenopathy. CHEST: Equal movements with decreased excursions. Breath sounds slightly diminished at the bases with wheezes bilaterally and occasional bibasilar crackles more so on the right side. HEART: Heart sounds are regular. S1 and S2. No murmur. No S3. ABDOMEN: Soft, benign. No masses or organomegaly. No tenderness. Bowel sounds are active. EXTREMITIES: No clubbing. Mild peripheral edema. Decreased pulses. NEUROLOGIC: Reflexes are 1+ with no gross motor deficits. Homans sign is negative. Cranial nerves grossly intact. RECTAL: Deferred. SKIN: No lesions observed. Assessment and Plan Assessment and Plan IMPRESSION 1. COPD with chronic bronchitis and acute exacerbation. 2. Basilar pneumonia and sepsis. 3. Right lower lobe lung nodule, etiology undetermined. 4. History of hypertension. 5. Coronary artery disease status post coronary artery bypass grafting. Plan . 1. Cont antibiotics. 2. Nebs , duoneb qid. 3. Taper steroids to q8h. 4. Sputum culture 5. Will arrange home O2 at [address] as OP. Олег Bullard MD Aug 13, 2016 12:52
[2016-08-13] MEDS: FLUTICASONE 100 MCG/VILANTEROL 25 MCG INHALER INH SCH (13:00)
[2016-08-13] MEDS: NYSTAT/DIPHENHY/LIDO MOUTHWASH (Adult) 120ML SWISH-SWAL SCH ×3 (13:29→21:11)
[2016-08-13] MEDS: RESP: ACETYLCYSTEINE 10% 30 ML NEB NEB SCH ×2 (16:00→20:37)
[2016-08-13] MEDS: ZOLPIDEM TARTRATE 5 MG TAB PO PRN (21:10)
[2016-08-13] MEDS: PANTOPRAZOLE SOD 40 MG DELAYED RELEASE TAB PO SCH (21:10)
[2016-08-13] MEDS: ATORVASTATIN 40 MG TAB PO SCH (21:11)
[2016-08-13] MEDS: ENOXAPARIN SODIUM 40 MG/0.4 ML SYRINGE SQ SCH (21:11)
[2016-08-14] VITALS (11 sets, daily range): BP systolic 103–127; BP diastolic 55–63; PULSE 65–105; RESP 17–20; TEMP 97.3–97.5; O2SAT 91–98
[2016-08-14] MEDS: RESP: ALBUTEROL 2.5 MG/IPRATROPIUM 0.5 MG NEB (SCH) NEB ×4 (03:32→21:33)
[2016-08-14] MEDS: methylPREDNISolone SOD SUCC 40 MG/1 ML VIAL IV SCH ×3 (05:48→20:46)
[2016-08-14] MEDS: LEVOTHYROXINE SODIUM 50 MCG TAB PO SCH (05:48)
[2016-08-14] MEDS: ASPIRIN 81 MG CHEW TAB CHEW SCH (08:31)
[2016-08-14] MEDS: LEVOFLOXACIN 750 MG TAB PO SCH (08:31)
[2016-08-14] MEDS: SERTRALINE HCL 100 MG TAB PO SCH (08:31)
[2016-08-14] MEDS: DOCUSATE SODIUM 100 MG CAP PO SCH ×2 (08:31→20:46)
[2016-08-14] MEDS: SODIUM CHLORIDE 0.9% FLUSH 5 ML FLUSH FLUSH SCH ×2 (08:32→20:47)
[2016-08-14] MEDS: FLUTICASONE 100 MCG/VILANTEROL 25 MCG INHALER INH SCH (08:32)
[2016-08-14] MEDS: NYSTAT/DIPHENHY/LIDO MOUTHWASH (Adult) 120ML SWISH-SWAL SCH ×4 (08:32→20:46)
[2016-08-14] MEDS: RESP: ACETYLCYSTEINE 10% 30 ML NEB NEB SCH ×3 (10:08→21:33)
--- NOTE | 2016-08-14 12:48 | HHI.PR ---
Subjective Remarks In the chair, appears in nad. Satting well on 2L NC. Patient says he has productive cough of yellow sputum and he feels chest congestion. No fever or chills overnight. No n/v/d/c. Objective Vitals Vital Signs Date Time Temp Pulse Resp B/P Pulse Ox O2 Delivery O2 Flow Rate FiO2 08/14/16 12:22 93 08/14/16 12:00 97.4 99 18 112/55 93 08/14/16 10:08 96 Nasal Cannula 2.00 08/14/16 08:40 Nasal Cannula 2.00 Humidified 08/14/16 08:01 105 08/14/16 08:00 97.4 65 17 126/63 92 08/14/16 04:30 97.4 75 18 127/58 91 08/14/16 03:34 91 Nasal Cannula 3.00 08/13/16 23:20 97.5 76 18 121/58 93 08/13/16 22:20 95 Nasal Cannula 3.00 08/13/16 20:05 80 08/13/16 19:45 Nasal Cannula 2.00 Humidified 08/13/16 19:37 97.9 79 18 131/62 94 08/13/16 16:00 94.1 76 22 114/56 95 I/O 08/13/16 08/13/16 08/13/16 08/14/16 08/14/16 08/14/16 07:00 15:00 23:00 07:00 15:00 23:00 Intake Total 100 ml 100 ml 240 ml 480 ml Output Total 1495 ml 250 ml 1450 ml Balance -1395 ml -150 ml 240 ml -970 ml Intake Oral 100 ml 100 ml 240 ml 480 ml Output Urine Total 1495 ml 250 ml 1450 ml # Voids 3 # Bowel Movements 0 0 0 0 Result Diagram: 08/11/16 0659 08/11/16 [address] Angiography 08/09/16 0000 Signed Impressions: Service Date/Time: Tuesday, August 09, 2016 14:17 - CONCLUSION: Negative for pulmonary embolization. 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 There is a 1.7 cm rounded density in the right lower lobe posteriorly with possibility of malignancy not excludable. Minimal 3 to six-month followup CT scan is recommended to observe for stability. Farooq Diallo MD Chest X-Ray 08/05/16 1639 Signed Impressions: Service Date/Time: July 19:05 - CONCLUSION: Bilateral basilar interstitial disease, some 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 John Almaraz MD Objective Remarks GENERAL: Elderly male well nourished, well developed patient appears in nad. SKIN: Warm and dry. HEAD: Atraumatic. Normocephalic. EYES: Pupils equal and round. No scleral icterus. No injection or drainage. ENT: No nasal bleeding or discharge. Mucous membranes pink and moist. NECK: Trachea midline. No JVD. CARDIOVASCULAR: Regular rate and rhythm. RESPIRATORY: No accessory muscle use. Decreased breath sounds. Crackles right lower lung field. GASTROINTESTINAL: Abdomen soft, non-tender, nondistended. Hepatic and splenic margins not palpable. MUSCULOSKELETAL: Extremities without clubbing, cyanosis, or edema. No obvious deformities. NEUROLOGICAL: Awake and alert. No obvious cranial nerve deficits. Motor grossly within normal limits. Five out of 5 muscle strength in the arms and legs. Normal speech. PSYCHIATRIC: Appropriate mood and affect; insight and judgment normal. A/P Assessment and Plan GRIEF REACTION, STABLE, NONSUICIDAL. AMS, RESOLVED. SEVERE SEPSIS, RESOLVED. 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 There is a 1.7 cm rounded density in the right lower lobe posteriorly with possibility of malignancy not excludable. Minimal 3 to six-month followup CT scan is recommended to observe for stability. Plan for PRT scan as OP, will follow with pulm NSTEMI. TROP NEG NOW. HYPERGLYCEMIA REMOTE GIB PANCYTOPENIA CAD CABG HTN CHRONIC SINUSITIS NASAL ABSCESSES HYPOTHYROIDISM HYPOGONADISM, ON TESTOST PATCH. UNDERSTANDS R/B CA AND INCR CAD. PLAN: Continue mucomyst Pulm consult, appreciate recommendations Sputum cultures pending / Check legionella and pneumococcal Ag OFF IVF On IV steroids and duonebs taper as tolerated Continue fluticasone, advair Protonix for GI protection Fecal Occult blood pending Cardiology consult, recommends conservative management to follow up with his cardiology as OP Continue testosterone patch DVT ppx SCD.TEDs, lovenox Discussed with the patient, nurse, family at bedside Shirley Zavala MD Aug 14, 2016 12:48
--- NOTE | 2016-08-14 15:30 | HHI.PR ---
Subjective Remarks Less Cough and wheezing. PFT pending. No fever. Needs home O2. Get 6 min walk test Objective Vital Signs Date Time Temp Pulse Resp B/P Pulse Ox O2 Delivery O2 Flow Rate FiO2 08/14/16 12:22 93 08/14/16 12:00 97.4 99 18 112/55 93 08/14/16 10:08 96 Nasal Cannula 2.00 08/14/16 08:40 Nasal Cannula 2.00 Humidified 08/14/16 08:01 105 08/14/16 08:00 97.4 65 17 126/63 92 08/14/16 04:30 97.4 75 18 127/58 91 08/14/16 03:34 91 Nasal Cannula 3.00 08/13/16 23:20 97.5 76 18 121/58 93 08/13/16 22:20 95 Nasal Cannula 3.00 08/13/16 20:05 80 08/13/16 19:45 Nasal Cannula 2.00 Humidified 08/13/16 19:37 97.9 79 18 131/62 94 08/13/16 16:00 94.1 76 22 114/56 95 I/O 08/13/16 08/13/16 08/13/16 08/14/16 08/14/16 08/14/16 07:00 15:00 23:00 07:00 15:00 23:00 Intake Total 100 ml 100 ml 240 ml 480 ml 2 ml Output Total 1495 ml 250 ml 1450 ml Balance -1395 ml -150 ml 240 ml -970 ml 2 ml Intake Oral 100 ml 100 ml 240 ml 480 ml IV Total 2 ml Output Urine Total 1495 ml 250 ml 1450 ml # Voids 3 # Bowel Movements 0 0 0 0 Result Diagram: 08/11/1659 08/11/1659 Objective Remarks GENERAL: This is an elderly averagely built white male in no acute distress. HEENT: Head normocephalic. Pupils reactive. Tongue is moist. Throat is clear. Nasal mucosae is clear. NECK: Supple. No venous distension. No bruits, thyroid enlargement or lymphadenopathy. CHEST: Equal movements with decreased excursions. Breath sounds slightly diminished at the bases with wheezes bilaterally and occasional bibasilar crackles HEART: Heart sounds are regular. S1 and S2. No murmur. No S3. ABDOMEN: Soft, benign. No masses or organomegaly. No tenderness. Bowel sounds are active. EXTREMITIES: No clubbing. Mild peripheral edema. Decreased pulses. NEUROLOGIC: Reflexes are 1+ with no gross motor deficits. Homans sign is negative. Cranial nerves grossly intact. RECTAL: Deferred. SKIN: No lesions observed. Assessment and Plan Assessment and Plan IMPRESSION 1. COPD with chronic bronchitis and acute exacerbation. 2. Basilar pneumonia and sepsis. 3. Right lower lobe lung nodule, etiology undetermined. 4. History of hypertension. 5. Coronary artery disease status post coronary artery bypass grafting. Plan . 1. Cont antibiotics. 2. Nebs , duoneb qid. 3. Taper steroids to q12h. 4. 6 min walk test for O2 5. Will arrange home O2 at [address] as OP. Олег Bullard MD Aug 14, 2016 15:30
[2016-08-14] MEDS: PANTOPRAZOLE SOD 40 MG DELAYED RELEASE TAB PO SCH (20:46)
[2016-08-14] MEDS: ATORVASTATIN 40 MG TAB PO SCH (20:46)
[2016-08-14] MEDS: ENOXAPARIN SODIUM 40 MG/0.4 ML SYRINGE SQ SCH (20:46)
[2016-08-14] MEDS: ZOLPIDEM TARTRATE 5 MG TAB PO PRN (20:46)
[2016-08-14] MEDS ORDERED: methylPREDNISolone SOD SUCC 40 MG/1 ML VIAL IV SCH (21:00)
[2016-08-15] VITALS (9 sets, daily range): BP systolic 111–135; BP diastolic 54–61; PULSE 71–90; RESP 12–20; TEMP 97.3–98.2; O2SAT 93–97
[2016-08-15] MEDS: RESP: ALBUTEROL 2.5 MG/IPRATROPIUM 0.5 MG NEB (SCH) NEB ×4 (03:24→19:39)
[2016-08-15] MEDS: RESP: ACETYLCYSTEINE 10% 30 ML NEB NEB SCH ×4 (03:24→19:39)
[2016-08-15] MEDS: LEVOTHYROXINE SODIUM 50 MCG TAB PO SCH (06:11)
[2016-08-15] MEDS: methylPREDNISolone SOD SUCC 40 MG/1 ML VIAL IV SCH ×2 (06:11→12:44)
[2016-08-15] MEDS: DOCUSATE SODIUM 100 MG CAP PO SCH ×2 (08:19→20:30)
[2016-08-15] MEDS: LEVOFLOXACIN 750 MG TAB PO SCH (08:19)
[2016-08-15] MEDS: ASPIRIN 81 MG CHEW TAB CHEW SCH (08:19)
[2016-08-15] MEDS: SERTRALINE HCL 100 MG TAB PO SCH (08:19)
[2016-08-15] MEDS: NYSTAT/DIPHENHY/LIDO MOUTHWASH (Adult) 120ML SWISH-SWAL SCH ×4 (08:20→20:30)
[2016-08-15] MEDS: SODIUM CHLORIDE 0.9% FLUSH 5 ML FLUSH FLUSH SCH ×2 (08:20→20:43)
[2016-08-15] MEDS: FLUTICASONE 100 MCG/VILANTEROL 25 MCG INHALER INH SCH (08:27)
--- NOTE | 2016-08-15 12:37 | HHI.PR ---
Subjective Remarks SOB has improved. Says he is coughing with copious yellow amount of sputum No fever or chills. Feesl tired but improved since yesterday. No n/v/d/c. Objective Vitals Vital Signs Date Time Temp Pulse Resp B/P Pulse Ox O2 Delivery O2 Flow Rate FiO2 08/15/16 12:00 97.8 90 16 112/56 95 08/15/16 09:35 97 Nasal Cannula 2.00 08/15/16 09:25 2.00 08/15/16 08:32 Nasal Cannula 2.00 08/15/16 08:00 97.3 75 12 124/58 95 08/15/16 04:00 98.2 71 18 135/61 96 08/15/16 00:00 97.4 82 18 122/57 95 08/14/16 21:34 95 Nasal Cannula 2.00 08/14/16 20:43 Nasal Cannula 2.00 08/14/16 20:00 97.3 82 18 118/58 96 08/14/16 19:58 84 08/14/16 16:00 97.5 82 20 103/56 98 I/O 08/14/16 08/14/16 08/14/16 08/15/16 08/15/16 08/15/16 07:00 15:00 23:00 07:00 15:00 23:00 Intake Total 480 ml 962 ml 720 ml 240 ml Output Total 1450 ml 850 ml 600 ml Balance -970 ml 962 ml -130 ml -360 ml Intake Oral 480 ml 960 ml 720 ml 240 ml IV Total 2 ml Output Urine Total 1450 ml 850 ml 600 ml # Voids 2 # Bowel Movements 0 1 0 0 Result Diagram: 08/11/16 0659 08/11/16 [address] Angiography 08/09/16 0000 Signed Impressions: Service Date/Time: Tuesday, August 09, 2016 14:17 - CONCLUSION: Negative for pulmonary embolization. 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 There is a 1.7 cm rounded density in the right lower lobe posteriorly with possibility of malignancy not excludable. Minimal 3 to six-month followup CT scan is recommended to observe for stability. Farooq Diallo MD Chest X-Ray 08/05/16 5278 Signed Impressions: Service Date/Time: July 19:05 - CONCLUSION: Bilateral basilar interstitial disease, some 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 John Almaraz MD Objective Remarks GENERAL: Elderly male well nourished, well developed patient appears in nad. SKIN: Warm and dry. HEAD: Atraumatic. Normocephalic. EYES: Pupils equal and round. No scleral icterus. No injection or drainage. ENT: No nasal bleeding or discharge. Mucous membranes pink and moist. NECK: Trachea midline. No JVD. CARDIOVASCULAR: Regular rate and rhythm. RESPIRATORY: No accessory muscle use. Decreased breath sounds. Crackles right lower lung field. GASTROINTESTINAL: Abdomen soft, non-tender, nondistended. Hepatic and splenic margins not palpable. MUSCULOSKELETAL: Extremities without clubbing, cyanosis, or edema. No obvious deformities. NEUROLOGICAL: Awake and alert. No obvious cranial nerve deficits. Motor grossly within normal limits. Five out of 5 muscle strength in the arms and legs. Normal speech. PSYCHIATRIC: Appropriate mood and affect; insight and judgment normal. A/P Assessment and Plan GRIEF REACTION, STABLE, NONSUICIDAL. AMS, RESOLVED. SEVERE SEPSIS, RESOLVED. 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 There is a 1.7 cm rounded density in the right lower lobe posteriorly with possibility of malignancy not excludable. Minimal 3 to six-month followup CT scan is recommended to observe for stability. Plan for PRT scan as OP, will follow with pulm NSTEMI. TROP NEG NOW. HYPERGLYCEMIA REMOTE GIB PANCYTOPENIA CAD CABG HTN CHRONIC SINUSITIS NASAL ABSCESSES HYPOTHYROIDISM HYPOGONADISM, ON TESTOST PATCH. UNDERSTANDS R/B CA AND INCR CAD. PLAN: Continue mucomyst Pulm consult, appreciate recommendations Sputum cultures pending / Check legionella and pneumococcal Ag OFF IVF On IV steroids and duonebs taper as tolerated Continue fluticasone, advair Protonix for GI protection Fecal Occult blood pending Cardiology consult, recommends conservative management to follow up with his cardiology as OP Continue testosterone patch DVT ppx SCD.TEDs, lovenox Discussed with the patient, nurse, family at bedside DC on Tuesday as home health available only since Tuesday. Patient is improving. Shirley Zavala MD Aug 15, 2016 12:37
--- NOTE | 2016-08-15 16:26 | HHI.PR ---
Subjective Remarks Less Cough and feels better. No fever. Needs home O2. at 2l. Objective Vital Signs Date Time Temp Pulse Resp B/P Pulse Ox O2 Delivery O2 Flow Rate FiO2 08/15/16 12:54 76 08/15/16 12:00 97.8 90 16 112/56 95 08/15/16 09:35 97 Nasal Cannula 2.00 08/15/16 09:25 2.00 08/15/16 08:32 Nasal Cannula 2.00 08/15/16 08:00 97.3 75 12 124/58 95 08/15/16 04:00 98.2 71 18 135/61 96 08/15/16 00:00 97.4 82 18 122/57 95 08/14/16 21:34 95 Nasal Cannula 2.00 08/14/16 20:43 Nasal Cannula 2.00 08/14/16 20:00 97.3 82 18 118/58 96 08/14/16 19:58 84 I/O 08/14/16 08/14/16 08/14/16 08/15/16 08/15/16 08/15/16 07:00 15:00 23:00 07:00 15:00 23:00 Intake Total 480 ml 962 ml 720 ml 240 ml 600 ml Output Total 1450 ml 850 ml 600 ml 500 ml Balance -970 ml 962 ml -130 ml -360 ml 100 ml Intake Oral 480 ml 960 ml 720 ml 240 ml 600 ml IV Total 2 ml Output Urine Total 1450 ml 850 ml 600 ml 500 ml # Voids 2 # Bowel Movements 0 1 0 0 0 Result Diagram: 08/11/16 0659 08/11/16 0659 Objective Remarks GENERAL: This is an elderly averagely built white male in no acute distress. HEENT: Head normocephalic. Pupils reactive. Tongue is moist. Throat is clear. Nasal mucosae is clear. NECK: Supple. No venous distension. No bruits, thyroid enlargement or lymphadenopathy. CHEST: Equal movements with decreased excursions. Breath sounds slightly diminished at the bases with wheezes bilaterally. HEART: Heart sounds are regular. S1 and S2. No murmur. No S3. ABDOMEN: Soft, benign. No masses or organomegaly. No tenderness. Bowel sounds are active. EXTREMITIES: No clubbing. Mild peripheral edema. Decreased pulses. NEUROLOGIC: Reflexes are 1+ with no gross motor deficits. Homans sign is negative. Cranial nerves grossly intact. RECTAL: Deferred. SKIN: No lesions observed. Assessment and Plan Assessment and Plan IMPRESSION 1. COPD with chronic bronchitis and acute exacerbation. 2. Basilar pneumonia and sepsis. 3. Right lower lobe lung nodule, etiology undetermined. 4. History of hypertension. 5. Coronary artery disease status post coronary artery bypass grafting. Plan . 1. Cont antibiotics. 2. Nebs , duoneb qid. 3. D/C Solumedrol 4. 6 min walk test for O2 5. Will arrange home O2 at [address] as OP. 7. Prednisone 20 mg bid . Олег Bullard MD Aug 15, 2016 16:26
[2016-08-15] MEDS: ACETAMINOPHEN/HYDROcodone 325 MG/5 MG TAB PO PRN ×2 (16:56→21:39)
[2016-08-15] MEDS: ENOXAPARIN SODIUM 40 MG/0.4 ML SYRINGE SQ SCH (20:30)
[2016-08-15] MEDS: ATORVASTATIN 40 MG TAB PO SCH (20:30)
[2016-08-15] MEDS: ZOLPIDEM TARTRATE 5 MG TAB PO PRN (20:30)
[2016-08-15] MEDS: PANTOPRAZOLE SOD 40 MG DELAYED RELEASE TAB PO SCH (20:30)
[2016-08-15] MEDS: predniSONE 20 MG TAB PO SCH (20:30)
[2016-08-16] VITALS: BP 136/63; PULSE 72; RESP 18; TEMP 97.3; O2SAT 94
[2016-08-16 04:00] VITALS: BP 129/60; PULSE 70; RESP 16; TEMP 97.4; O2SAT 93
[2016-08-16] MEDS: LEVOTHYROXINE SODIUM 50 MCG TAB PO SCH (06:36)
[2016-08-16 08:00] VITALS: BP 164/68; PULSE 79; PULSE 96; RESP 20; TEMP 96; O2SAT 96
[2016-08-16] MEDS: NYSTAT/DIPHENHY/LIDO MOUTHWASH (Adult) 120ML SWISH-SWAL SCH ×2 (08:20→12:35)
[2016-08-16] MEDS: SERTRALINE HCL 100 MG TAB PO SCH (08:20)
[2016-08-16] MEDS: ASPIRIN 81 MG CHEW TAB CHEW SCH (08:20)
[2016-08-16] MEDS: predniSONE 20 MG TAB PO SCH (08:20)
[2016-08-16] MEDS: FLUTICASONE 100 MCG/VILANTEROL 25 MCG INHALER INH SCH (08:21)
[2016-08-16] MEDS: LEVOFLOXACIN 750 MG TAB PO SCH (08:21)
[2016-08-16] MEDS: SODIUM CHLORIDE 0.9% FLUSH 5 ML FLUSH FLUSH SCH (08:21)
[2016-08-16] MEDS: DOCUSATE SODIUM 100 MG CAP PO SCH (08:21)
[2016-08-16] MEDS: RESP: ALBUTEROL 2.5 MG/IPRATROPIUM 0.5 MG NEB (SCH) NEB (08:58)
[2016-08-16] MEDS: RESP: ACETYLCYSTEINE 10% 30 ML NEB NEB SCH ×2 (09:02→10:00)
[2016-08-16 09:03] VITALS: O2SAT 96
[2016-08-16] MEDS ORDERED: ADVA250A INH (11:10)
[2016-08-16] MEDS ORDERED: LEVO.05 PO (11:10)
[2016-08-16] MEDS ORDERED: LORA-392 PO (11:10)
[2016-08-16] MEDS ORDERED: Aspirin Chew CHEW (11:10)
[2016-08-16] MEDS ORDERED: LEVA750T PO (11:10)
[2016-08-16] MEDS ORDERED: LIPI40TA PO (11:10)
[2016-08-16] MEDS ORDERED: MEDR4PAK PO (11:10)
[2016-08-16] MEDS ORDERED: ZOLO100T PO (11:10)
--- NOTE | 2016-08-16 11:15 | HHI.DCPOC ---
Discharge Care Plan Diagnosis: (1) Shortness of breath (2) Elevated troponin (3) Acute exacerbation of CHF (congestive heart failure) (4) Mourning (5) PNA (pneumonia) Goals to Promote Your Health * To prevent worsening of your condition and complications * To maintain your health at the optimal level Directions to Meet Your Goals Take your medications as prescribed Follow your dietary instruction Follow activity as directed Keep your appointments as scheduled Take your immunizations and boosters as scheduled If your symptoms worsen call your PCP, if no PCP go to Urgent Care Center or Emergency Room Smoking is Dangerous to Your Health. Avoid second hand smoke Call the 24-hour hour crisis hotline for domestic abuse at Noe García MD Aug 16, 2016 11:15
--- NOTE | 2016-08-16 11:16 | HHI.FF ---
Face to Face Verification Diagnosis: (1) Shortness of breath (2) Elevated troponin (3) Acute exacerbation of CHF (congestive heart failure) (4) Mourning (5) PNA (pneumonia) Physical Therapy Order: Evaluate and Treat, Improve ambulation, Strength and gait training Home Health Nursing Order: Medical education Signs/symptoms of disease process CHF education Medication education-adverse effect Nursing assessment with vital signs Telehealth Home Health Aide Order: To Assist In: Bathing and personal care, scientific advisor and meal prep Hotbed Operator Order: To Evaluate: Living conditions/environment, Support services Order: To Provide: Long range planning, Community services I have seen patient Jose Roth on 08/16/16. My clinical findings support the need for the requested home health care services because: Ltd mobility - disease progression Patient has SOB Deconditioned w/ increased weakness Med compliance is questionable Limited ability to care for self Need for psychosocial assistance Impaired cognition/judgement High risk of falls Infection w/ risk of complications I certify that my clinical findings support that this patient is homebound because: Hx COPD- exertion dyspnea/weakness Unsteady gait/balance Unsafe to leave home unassisted Need for psychosocial assistance Unable to use public transportation Poor cardiac reserve Noe García MD Aug 16, 2016 11:16
--- NOTE | 2016-08-16 11:19 | HHI.DS ---
Discharge Summary Admission Date Aug 05, 2016 at 20:31 Discharge Date: Aug 16, 2016 Admitting Diagnosis CHF exacerbation, chest pain r/o ACS (1) Shortness of breath (2) Elevated troponin (3) Acute exacerbation of CHF (congestive heart failure) (4) Mourning (5) PNA (pneumonia) Brief History 81 Y CM. ADMIT FOR HORTON ACT AND PNA. PT AND HIS HAVE BEEN AT HOME WITH COLD SYMPTOMS FOR APPROXIMATELY THE PAST FOUR DAYS. PT FOUND HIS IN BED FOR WHAT SEEMED TO BE AN EXTENDED PERIOD OF TIME. PT REPORTED HE DID NOT WANT TO BOTHER HIS WHEN SHE WAS ILL IN BED TO TRY TO LET HER RECOVER AND DID NOT WANT TO TAKE HER TO THE ER. HE CALLED MY OFFICE AT [facility] TO REPORT HER HAVING SUBJECTIVE FEVER YET DID NOT SCHEDULE AND APPT HE WAS GOING TO GO TO THE ER AT [facility] DUE TO HIMSELF HAVING RECTAL BLEEDING. I CHECKED THE ER AT [facility] TO SEE IF HE ARRIVED THERE AT THE TIME AND HE WAS A NO SHOW. I WAS CALLED BY THE OFFICER ON THE SCENE AND SPOKE WITH A SIGNAL CONSTRUCTOR WHOM WAS CONCERNED FOR HIS WELL BEING AND THAT HE APPEARED TO HAVE CHEST CONGESTION. PT CLIFFORD ACTED TO [place] HE WAS NOT EATING AND THE CONCERN THAT HE WAS UNABLE TO CARE FOR HIMSELF. I WAS THUS CALLED FOR ADMISSION AND SPOKE WITH THE ER PA. PT FOUND WITH PNA, SEPSIS AND GRIEF REACTION. PT VOICES NO A/V/H, NO SI. NO GUNS IN THE HOME. PE at Discharge GENERAL: SKIN: Warm and dry. HEAD: Atraumatic. Normocephalic. EYES: Pupils equal and round. No scleral icterus. No injection or drainage. ENT: No nasal bleeding or discharge. Mucous membranes pink and moist. NECK: Trachea midline. No JVD. CARDIOVASCULAR: Regular rate and rhythm. RESPIRATORY: No accessory muscle use. Clear to auscultation. Breath sounds equal bilaterally. GASTROINTESTINAL: Abdomen soft, non-tender, nondistended. Hepatic and splenic margins not palpable. MUSCULOSKELETAL: Extremities without clubbing, cyanosis, or edema. No obvious deformities. NEUROLOGICAL: Awake and alert. No obvious cranial nerve deficits. Motor grossly within normal limits. Five out of 5 muscle strength in the arms and legs. Normal speech. PSYCHIATRIC: Appropriate mood and affect; insight and judgment normal. Hospital Course 81 Y CM, ADMIT WITH - GRIEF REACTION, STABLE, NONSUICIDAL. AMS, RESOLVED. SEVERE SEPSIS, RESOLVED. 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 There is a 1.7 cm rounded density in the right lower lobe posteriorly with possibility of malignancy not excludable. Minimal 3 to six-month followup CT scan is recommended to observe for stability. Plan for PRT scan as OP, will follow with pulm NSTEMI. TROP NEG NOW. HYPERGLYCEMIA REMOTE GIB PANCYTOPENIA CAD CABG HTN CHRONIC SINUSITIS NASAL ABSCESSES HYPOTHYROIDISM HYPOGONADISM, ON TESTOST PATCH. UNDERSTANDS R/B CA AND INCR CAD. HOSPITAL COURSE AND PLAN WAS TO - Continue mucomyst Pulm consult, appreciate recommendations Sputum cultures pending / Check legionella and pneumococcal Ag OFF IVF On IV steroids and duonebs taper as tolerated Continue fluticasone, advair Protonix for GI protection Fecal Occult blood pending Cardiology consult, recommends conservative management to follow up with his cardiology as OP Continue testosterone patch DVT ppx SCD.TEDs, lovenox ORDERED HOME O2. PT AND SON HAPPY TO DC. Discharge Disposition: Disch w/ Home Health Serv Discharge Instructions DIET: Follow Instructions for: Heart Healthy Diet Activities you can perform: Regular-No Restrictions Follow up Referrals: Cardiology - [address] MARIE Cardiology PCP Follow-up - 2-3 Days Pulmonology - 1 Week with Олег Bullard MD New Medications: Fluticasone-Salmeterol Inh (Advair Diskus Inh) 250-50 Mcg/Blist Aer 1 PUFF INH BID Rinse mouth after use. Cough #1 Ref 11 INHALER Lorazepam (Ativan) 0.5 Mg Tab 0.5 MG PO DAILY PRN ANXIETY AND/OR AGITATION #7 Ref 1 TAB Methylprednisolone Dosepak (Medrol Dosepak) 4 Mg Dspk 4 MG PO DIRECTED Per Pharmacist direction #1 Ref 0 DSPK Atorvastatin (Lipitor) 40 Mg Tab 40 MG PO HS hpl Days 90 Ref 5 TAB Levofloxacin (Levaquin) 750 Mg Tab 750 MG PO DAILY pna Days 7 Ref 0 TAB Levothyroxine (Synthroid) 50 Mcg Tab 50 MCG PO DAILY@0600 Thyroid Days 90 Ref 5 TAB Sertraline (Zoloft) 100 Mg Tab 100 MG PO DAILY Depression Control Days 90 Ref 5 TAB ([Aspirin Chew]) 81 MG CHEW 81 MG CHEW DAILY Days 90 Ref 11 TAB.CHEW Noe García MD Aug 16, 2016 11:19
[2016-08-16] MEDS ORDERED: PRED20 PO (11:21)
[2016-08-16 12:00] VITALS: BP 147/67; PULSE 86; RESP 20; TEMP 97.8; O2SAT 93
--- NOTE | 2016-08-30 12:58 | RSPPFT ---
DATE OF PROCEDURE: 08/13/16 COMMENTS: Spirometry demonstrates an FEV1 of 1.9 at 48% of predicted, FVC of 2.6 at 52%, FEF 25-75 is 35% of predicted. Post-bronchodilator study demonstrated mild improvements. Lung volumes were not completed. Flow volume loops suggest a restrictive pattern. IMPRESSION: 1. Mild to moderate obstructive disease. 2. Additional moderate restrictive disease. 3. No significant response to use of bronchodilator.
== END 2016-08-16 15:45 | disposition home health service (06) | DRG 871 ==
LOC: NEPC 17:55 → OBSVTOIN 20:31 → NEDA 20:31 → N04A 08-06 00:21
PROVIDERS: ADMIT Family Medicine; ATTEND Family Medicine
DX: A41.9 Sepsis, unspecified organism (principal); I21.4 Non-ST elevation (NSTEMI) myocardial infarction; I11.0 Hypertensive heart disease with heart failure; J18.9 Pneumonia, unspecified organism; D61.818 Other pancytopenia; J44.0 Chronic obstructive pulmonary disease with (acute) lower respiratory infection; I50.9 Heart failure, unspecified; J44.1 Chronic obstructive pulmonary disease with (acute) exacerbation; I25.810 Atherosclerosis of coronary artery bypass graft(s) without angina pectoris; E87.1 Hypo-osmolality and hyponatremia; J84.10 Pulmonary fibrosis, unspecified; J32.9 Chronic sinusitis, unspecified; I25.10 Atherosclerotic heart disease of native coronary artery without angina pectoris; R65.20 Severe sepsis without septic shock; E03.9 Hypothyroidism, unspecified; F43.21 Adjustment disorder with depressed mood; R73.9 Hyperglycemia, unspecified; E29.1 Testicular hypofunction; R91.1 Solitary pulmonary nodule; R09.02 Hypoxemia; Z95.1 Presence of aortocoronary bypass graft; Z87.891 Personal history of nicotine dependence
CPT/HCPCS: 36600; 71010; 71275; 80048; 80053; 80307; 80320; 81001; 82550; 82552; 82805; 83735; 83880; 84484; 85007; 85025; 85027; 85610; 85730; 87070; 87077; 87186; 87205; 87449; 93005; 93306; 94060; 94150; 94620; 94640; 94664; C9113; J1650; J1940; J1956; J2920; J2930; J3480; J7030; J7512; J7608; J7613; Q9967